=== PATIENT | male | born 1965 | race Caucasian/White ===

== ENCOUNTER 2016-06-18 05:32 | Emergency (ER) | payer BC, OTHER ==
[2016-06-18 06:13] LABS: Basophils # (A) 0.1 k/uL (0-0.2); Basophils % (A) 2 %; CH 31.3; CHCM 36.4; Eosinophils # (A) 0.4 k/uL (0-0.7); Eosinophils % (A) 6 %; HCT 47.4 % (39.0-53.0); HDW 2.84; Luc # (Auto) 0.17; Luc % (Auto) 3; Lymphocytes # (A) 1.4 k/uL (1.0-4.8); Lymphocytes % (A) 23 %; MCHC 35.9 g/dL (31.0-37.0); MCV 86.3 fL (80.0-100.0); Mean Platelet Volume 7.7; Monocytes # (A) 0.6 k/uL (0-1.0); Monocytes % (A) 9 %; Neutrophils # (A) 3.7 k/uL (1.3-7.7); Neutrophils % (A) 58 %; RBC 5.49 m/uL (4.30-5.90); RDW 12.2 % (11.5-15.5); WBC 6.4 k/uL (3.8-10.6); WBC (Perox) 5.85
--- NOTE | 2016-06-18 06:26 | XR ---
EXAM: XR Chest, 2 Views. CLINICAL HISTORY: Reason: Chest Pain TECHNIQUE: Frontal and lateral views of the chest. COMPARISON: No relevant prior studies available. FINDINGS: Lungs: Unremarkable. No consolidation. Pleural spaces: Unremarkable. No pneumothorax. Heart: Unremarkable. No cardiomegaly. Mediastinum: Unremarkable. Bones: Unremarkable. No acute fracture. IMPRESSION: Normal chest.
[2016-06-18 06:32] LABS: ALT 91 U/L (21-72); AST 60 U/L (17-59); Alkaline Phosphatase 48 U/L (38-126); Anion Gap 13 mmol/L; Blood Urea Nitrogen 14 mg/dL (9-20); Calcium 9.1 mg/dL (8.4-10.2); Carbon Dioxide 22 mmol/L (22-30); Chloride 108 mmol/L (98-107); Glucose 100 mg/dL (74-99); Magnesium 2.2 mg/dL (1.6-2.3); Non-African American GFR(MDRD) >60 (>60 ml/min/1.73 sqM); Potassium 4.6 mmol/L (3.5-5.1); Sodium 143 mmol/L (137-145); Total Bilirubin 1.1 mg/dL (0.2-1.3); Total Protein 7.2 g/dL (6.3-8.2)
--- NOTE | 2016-06-18 06:37 | ED ---
Arrhythmia/Palpitations HPI - General Source: patient Mode of arrival: wheelchair Limitations: no limitations - History of Present Illness MD Complaint: palpitations Onset/Timin -: hour(s) Context: awoke with symptoms Associated Symptoms: denies other symptoms <Brian Uribe - Last Filed: 06/18/16 06:38> <Rubén Parkinson - Last Filed: 06/18/16 09:42> - General Chief Complaint: Arrhythmia/Palpitations Stated Complaint: Heart Palpitations Time Seen by Provider: 06/18/16 05:47 - History of Present Illness Initial Comments: This patient is a 51-year-old man who presents to be evaluated for palpitations. The patient states that he woke up a bit after 4 AM and noticed that his heart was pounding in his chest. He denies other symptoms, including no chest pain, dyspnea, diaphoresis, nausea or vomiting. He does state that he believes he has history of sleep apnea though he has not had a formal sleep study. (Brian Uribe) - Related Data Home Medications Medication Instructions Recorded Confirmed Ascorbic Acid/Multivit-Min 1,000 mg PO DAILY 06/18/16 06/18/16 [Emergen-C 1,000 mg Packet] [id number] Systemic Enzyme 1 tab PO AC-TID 06/18/16 06/18/16 Formula Losartan Potassium 100 mg PO DAILY 06/18/16 06/18/16 Multivitamin [Men's Multi-Vitamin] 1 tab PO DAILY 06/18/16 06/18/16 Ubidecarenone [Co Q-10] 200 mg PO DAILY 06/18/16 06/18/16 Allergies Allergy/AdvReac Type Severity Reaction Status Date / Time No Known Allergies Allergy Verified 06/18/16 08:41 Review of Systems ROS Other: All systems not noted in ROS Statement are negative. Constitutional: Denies: fever, chills Respiratory: Denies: cough, dyspnea, wheezes Cardiovascular: Reports: palpitations. Denies: chest pain, orthopnea, edema, syncope Gastrointestinal: Denies: abdominal pain, nausea, vomiting Musculoskeletal: Denies: back pain Skin: Denies: rash Neurological: Denies: headache, weakness, numbness <Brian Uribe - Last Filed: 06/18/16 06:38> ROS Other: All systems not noted in ROS Statement are negative. <Rubén Parkinson - Last Filed: 06/18/16 09:42> ROS Statement: Those systems with pertinent positive or pertinent negative responses have been documented in the HPI. Past Medical History Past Medical History: GERD/Reflux, Hypertension, Sleep Apnea/CPAP/BIPAP Additional Past Medical History / Comment(s): no cpap used, hx kidney stones History of Any Multi-Drug Resistant Organisms: None Reported Past Surgical History: Orthopedic Surgery Additional Past Surgical History / Comment(s): left knee surgery, ruptured left bicep tendon, rt hand surgery, facial surgery-broken jaw, lasik eye surgery Past Anesthesia/Blood Transfusion Reactions: Motion Sickness Past Psychological History: No Psychological Hx Reported Smoking Status: Former smoker Past Alcohol Use History: Rare Additional Past Alcohol Use History / Comment(s): quit smoking 26 yrs ago, smoked for 4 yrs Past Drug Use History: None Reported - Past Family History Mother Family Medical History: No Reported History <Brian Uribe - Last Filed: 06/18/16 06:38> General Exam Limitations: no limitations General appearance: alert, in no apparent distress Head exam: Present: atraumatic, normocephalic Eye exam: Present: normal appearance. Absent: scleral icterus, conjunctival injection Neck exam: Present: normal inspection Respiratory exam: Present: normal lung sounds bilaterally. Absent: respiratory distress, wheezes, rales, rhonchi, stridor, chest wall tenderness Cardiovascular Exam: Present: regular rate, normal rhythm, normal heart sounds. Absent: systolic murmur, diastolic murmur, rubs, gallop GI/Abdominal exam: Present: soft. Absent: distended, tenderness, guarding, rebound, mass Extremities exam: Present: normal inspection, normal capillary refill. Absent: pedal edema, calf tenderness Neurological exam: Present: alert Skin exam: Present: warm, dry, intact, normal color. Absent: rash <JojoBrian - Last Filed: 06/18/16 06:38> General appearance: alert, in no apparent distress Head exam: Present: atraumatic, normocephalic, normal inspection Eye exam: Present: normal appearance, PERRL, EOMI. Absent: scleral icterus, conjunctival injection, periorbital swelling ENT exam: Present: normal exam, mucous membranes moist Neck exam: Present: normal inspection. Absent: tenderness, meningismus, lymphadenopathy Respiratory exam: Present: normal lung sounds bilaterally. Absent: respiratory distress, wheezes, rales, rhonchi, stridor Cardiovascular Exam: Present: regular rate, normal rhythm, normal heart sounds. Absent: systolic murmur, diastolic murmur, rubs, gallop, clicks GI/Abdominal exam: Present: soft, normal bowel sounds. Absent: distended, tenderness, guarding, rebound, rigid Extremities exam: Present: normal inspection, full ROM, normal capillary refill. Absent: tenderness, pedal edema, joint swelling, calf tenderness Back exam: Present: normal inspection Neurological exam: Present: alert, oriented X3, CN II-XII intact Psychiatric exam: Present: normal affect, normal mood Skin exam: Present: warm, dry, intact, normal color. Absent: rash <Rubén Parkinson - Last Filed: 06/18/16 09:42> Course <Brian Uribe - Last Filed: 06/18/16 06:38> <Rubén Parkinson - Last Filed: 06/18/16 09:42> Vital Signs 06/18/16 06/18/16 05:34 07:43 Temperature 97.8 F Pulse Rate 82 67 Respiratory 18 18 Rate Blood Pressure 179/105 168/86 O2 Sat by Pulse 95 97 Oximetry - Reevaluation(s) Reevaluation #1: 06/18/16 08:53 Patient is asymptomatic and repeat evaluation, patient consulted greater than 15 minutes regarding elevated precardiac enzymes CK-MB index. At this time patient is agreeing a repeat troponin he has had stress test within the past 6 months it was normal and denies chest pain. Plan is agreeable (Rubén Parkinson) EKG Findings - EKG Results: EKG: interpreted by ERMD, sinus rhythm (Rate 83 bpm), normal axis, normal QRS, normal ST/T <Brian Uribe - Last Filed: 06/18/16 06:38> Medical Decision Making - Lab Data Result diagrams: 06/18/16 05:50 <Brian Uribe Last Filed: 06/18/16 06:38> - Lab Data Result diagrams: 06/18/16 05:50 06/18/16 05:50 - Radiology Data Radiology results: report reviewed (Chest x-ray negative for acute disease), image reviewed <Rubén Parkinson - Last Filed: 06/18/16 09:42> - Medical Decision Making 48 male here with nonspecific palpitations, at this time patient's symptoms remained improved troponin negative 2 and temperature discharge home to follow up with cardiology (Rubén Parkinson) - Lab Data Lab Results 06/18/16 06/18/16 06/18/16 Range/Units 05:50 05:50 05:50 WBC 6.4 (3.8-10.6) k/uL RBC 5.49 (4.30-5.90) m/uL Hgb 17.0 (13.0-17.5) gm/dL Hct 47.4 (39.0-53.0) % MCV 86.3 (80.0-100.0) fL MCH 31.0 (25.0-35.0) pg MCHC 35.9 (31.0-37.0) g/dL RDW 12.2 (11.5-15.5) % Plt Count 195 (150-450) k/uL Neutrophils % 58 % Lymphocytes % 23 % Monocytes % 9 % Eosinophils % 6 % Basophils % 2 % Neutrophils # 3.7 (1.3-7.7) k/uL Lymphocytes # 1.4 (1.0-4.8) k/uL Monocytes # 0.6 (0-1.0) k/uL Eosinophils # 0.4 (0-0.7) k/uL Basophils # 0.1 (0-0.2) k/uL D-Dimer (<0.60) mg/L FEU Sodium 143 (137-145) mmol/L Potassium 4.6 (3.5-5.1) mmol/L Chloride 108 H (98-107) mmol/L Carbon Dioxide 22 (22-30) mmol/L Anion Gap 13 mmol/L BUN 14 (9-20) mg/dL Creatinine 0.86 (0.66-1.25) mg/dL Est GFR (MDRD) Af Amer >60 (>60 ml/min/1.73 sqM) Est GFR (MDRD) Non-Af >60 (>60 ml/min/1.73 sqM) Glucose 100 H (74-99) mg/dL Calcium 9.1 (8.4-10.2) mg/dL Magnesium 2.2 (1.6-2.3) mg/dL Total Bilirubin 1.1 (0.2-1.3) mg/dL AST 60 H (17-59) U/L ALT 91 H (21-72) U/L Alkaline Phosphatase 48 (38-126) U/L Total Creatine Kinase 148 (55-170) U/L CK-MB (CK-2) 5.9 H* (0.0-2.4) ng/mL CK-MB (CK-2) Rel Index 4.0 Troponin I <0.012 (0.000-0.034) ng/mL NT-Pro-B Natriuret Pep pg/mL Total Protein 7.2 (6.3-8.2) g/dL Albumin 4.2 (3.5-5.0) g/dL 06/18/16 06/18/16 06/18/16 Range/Units 05:50 05:50 08:45 WBC (3.8-10.6) k/uL RBC (4.30-5.90) m/uL Hgb (13.0-17.5) gm/dL Hct (39.0-53.0) % MCV (80.0-100.0) fL MCH (25.0-35.0) pg MCHC (31.0-37.0) g/dL RDW (11.5-15.5) % Plt Count (150-450) k/uL Neutrophils % % Lymphocytes % % Monocytes % % Eosinophils % % Basophils % % Neutrophils # (1.3-7.7) k/uL Lymphocytes # (1.0-4.8) k/uL Monocytes # (0-1.0) k/uL Eosinophils # (0-0.7) k/uL Basophils # (0-0.2) k/uL D-Dimer 0.19 (<0.60) mg/L FEU Sodium (137-145) mmol/L Potassium (3.5-5.1) mmol/L Chloride (98-107) mmol/L Carbon Dioxide (22-30) mmol/L Anion Gap mmol/L BUN (9-20) mg/dL Creatinine (0.66-1.25) mg/dL Est GFR (MDRD) Af Amer (>60 ml/min/1.73 sqM) Est GFR (MDRD) Non-Af (>60 ml/min/1.73 sqM) Glucose (74-99) mg/dL Calcium (8.4-10.2) mg/dL Magnesium (1.6-2.3) mg/dL Total Bilirubin (0.2-1.3) mg/dL AST (17-59) U/L ALT (21-72) U/L Alkaline Phosphatase (38-126) U/L Total Creatine Kinase 122 (55-170) U/L CK-MB (CK-2) 5.3 H* (0.0-2.4) ng/mL CK-MB (CK-2) Rel Index 4.3 Troponin I <0.012 (0.000-0.034) ng/mL NT-Pro-B Natriuret Pep 47 pg/mL Total Protein (6.3-8.2) g/dL Albumin (3.5-5.0) g/dL Disposition <Brian Uribe - Last Filed: 06/18/16 06:38> <Rubén Parkinson - Last Filed: 06/18/16 09:42> Clinical Impression: Palpitations Disposition: HOME SELF-CARE Condition: Good Instructions: Palpitations (ED) Referrals: Jerri Garcia MD [Primary Care Provider] - 1-2 days
[2016-06-18 06:52] LABS: Creatine Kinase 148 U/L (55-170)
[2016-06-18 07:04] LABS: Troponin I <0.012 ng/mL (0.000-0.034)
[2016-06-18 07:15] LABS: Creatine Kinase MB 5.9 ng/mL (0.0-2.4)
[2016-06-18 09:25] LABS: Creatine Kinase 122 U/L (55-170)
[2016-06-18 09:38] LABS: Troponin I <0.012 ng/mL (0.000-0.034)
[2016-06-18 09:39] LABS: Creatine Kinase MB 5.3 ng/mL (0.0-2.4)
[2016-06-18 10:02] VITALS: BP 171/78; PULSE 71; RESP 16; TEMP 98.7
== END 2016-06-18 10:02 | disposition home or self-care (01) ==
LOC: EC 05:32
DX: R00.2 Palpitations (principal); K21.9 Gastro-esophageal reflux disease without esophagitis; I10 Essential (primary) hypertension; Z79.899 Other long term (current) drug therapy; Z87.891 Personal history of nicotine dependence
CPT/HCPCS: 36415; 71020; 80053; 82550; 82553; 83735; 83880; 84484; 85025; 85379; 93005; 99285

== ENCOUNTER → 2017-02-09 | Outpatient (CLI) | payer BC ==
[2017-02-09 07:42] LABS: Basophils # (A) 0.1 k/uL (0-0.2); Basophils % (A) 1 %; CH 31.6; Eosinophils # (A) 0.3 k/uL (0-0.7); Eosinophils % (A) 4 %; HCT 51.7 % (39.0-53.0); HDW 2.76; HGB 17.3 gm/dL (13.0-17.5); Luc # (Auto) 0.19; Luc % (Auto) 3; Lymphocytes # (A) 1.8 k/uL (1.0-4.8); Lymphocytes % (A) 25 %; MCH 30.2 pg (25.0-35.0); MCHC 33.4 g/dL (31.0-37.0); MCV 90.4 fL (80.0-100.0); Mean Platelet Volume 6.8; Monocytes # (A) 0.6 k/uL (0-1.0); Monocytes % (A) 8 %; Neutrophils # (A) 4.4 k/uL (1.3-7.7); Neutrophils % (A) 60 %; RBC 5.72 m/uL (4.30-5.90); RDW 12.4 % (11.5-15.5); WBC 7.3 k/uL (3.8-10.6); WBC (Perox) 6.96
[2017-02-09 09:11] LABS: ALT 74 U/L (21-72); AST 49 U/L (17-59); Alkaline Phosphatase 65 U/L (38-126); Anion Gap 11 mmol/L; Blood Urea Nitrogen 18 mg/dL (9-20); Calcium 9.6 mg/dL (8.4-10.2); Carbon Dioxide 26 mmol/L (22-30); Chloride 104 mmol/L (98-107); Cholesterol 154 mg/dL (<200); Glucose 102 mg/dL (74-99); HDL Cholesterol 39 mg/dL (40-60); Non-African American GFR(MDRD) >60 (>60 ml/min/1.73 sqM); Potassium 4.7 mmol/L (3.5-5.1); Sodium 141 mmol/L (137-145); Total Bilirubin 1.4 mg/dL (0.2-1.3); Total Protein 7.5 g/dL (6.3-8.2)
[2017-02-09 12:45] LABS: Lyme IgG/IgM 0.1 Index; Lyme IgG/IgM Interp NEGATIVE (NEGATIVE)
== END | disposition home or self-care (01) ==
LOC: LABWHC1 06:37
PROVIDERS: ATTEND Internal Medicine
DX: S30.861A Insect bite (nonvenomous) of abdominal wall, initial encounter (principal); I10 Essential (primary) hypertension; Z12.5 Encounter for screening for malignant neoplasm of prostate
CPT/HCPCS: 84439; 80061; 80053; 84443; 85025; 86618; 36415; G0103

== ENCOUNTER 2017-12-15 14:15 | Inpatient (IN) | payer BC, OTHER ==
--- NOTE | 2017-12-15 15:18 | ED ---
General Adult HPI - General Chief complaint: Psychiatric Symptoms Stated complaint: mental health Time Seen by Provider: 12/15/17 14:22 Source: patient, RN notes reviewed, old records reviewed Mode of arrival: ambulatory Limitations: no limitations - History of Present Illness Initial comments: This is a 52-year-old male to the ER for evaluation of psychiatric illness. Patient sent ER today for evaluation regarding positive psychiatric issues. Patient denies any recent travel history or sick contacts. Patient denies any drug or alcohol abuse. Patient does take psychiatric medications. - Related Data Home Medications Medication Instructions Recorded Confirmed Losartan Potassium 100 mg PO DAILY 06/18/16 12/15/17 Aspirin/Acetaminophen/Caffeine 1 - 2 tab PO QID PRN 12/15/17 12/15/17 [Excedrin Migraine Caplet] Citalopram Hydrobromide [CeleXA] 40 mg PO DAILY 12/15/17 12/15/17 Metoprolol Tartrate [Lopressor] 25 mg PO BID 12/15/17 12/15/17 Mirtazapine [Remeron] 15 mg PO HS 12/15/17 12/15/17 Allergies Allergy/AdvReac Type Severity Reaction Status Date / Time No Known Allergies Allergy Verified 12/15/17 15:05 Review of Systems ROS Statement: Those systems with pertinent positive or pertinent negative responses have been documented in the HPI. ROS Other: All systems not noted in ROS Statement are negative. Past Medical History Past Medical History: GERD/Reflux, Hypertension, Sleep Apnea/CPAP/BIPAP Additional Past Medical History / Comment(s): no cpap used, hx kidney stones History of Any Multi-Drug Resistant Organisms: None Reported Past Surgical History: Orthopedic Surgery Additional Past Surgical History / Comment(s): left knee surgery, ruptured left bicep tendon, rt hand surgery, facial surgery-broken jaw, lasik eye surgery Past Anesthesia/Blood Transfusion Reactions: Motion Sickness Past Psychological History: Depression Smoking Status: Former smoker Past Alcohol Use History: Rare Past Drug Use History: None Reported - Past Family History Mother Family Medical History: No Reported History General Exam Limitations: no limitations General appearance: alert, in no apparent distress Head exam: Present: atraumatic, normocephalic, normal inspection Eye exam: Present: normal appearance, PERRL, EOMI. Absent: scleral icterus, conjunctival injection, periorbital swelling ENT exam: Present: normal exam, mucous membranes moist Neck exam: Present: normal inspection. Absent: tenderness, meningismus, lymphadenopathy Respiratory exam: Present: normal lung sounds bilaterally. Absent: respiratory distress, wheezes, rales, rhonchi, stridor Cardiovascular Exam: Present: regular rate, normal rhythm, normal heart sounds. Absent: systolic murmur, diastolic murmur, rubs, gallop, clicks GI/Abdominal exam: Present: soft, normal bowel sounds. Absent: distended, tenderness, guarding, rebound, rigid Extremities exam: Present: normal inspection, full ROM, normal capillary refill. Absent: tenderness, pedal edema, joint swelling, calf tenderness Back exam: Present: normal inspection Neurological exam: Present: alert, oriented X3, CN II-XII intact Psychiatric exam: Present: normal affect, normal mood Skin exam: Present: warm, dry, intact, normal color. Absent: rash Course Vital Signs 12/15/17 12/15/17 12/15/17 14:17 16:44 17:40 Temperature 98.2 F 98.1 F 98.3 F Pulse Rate 82 76 63 Respiratory 20 16 18 Rate Blood Pressure 157/103 173/92 159/83 O2 Sat by Pulse 98 96 96 Oximetry - Reevaluation(s) Reevaluation #1: 12/15/17 15:18 Patient is medically clear for psychiatric evaluation Medical Decision Making - Medical Decision Making 52 male the ER for evaluation, patient is seen evaluated with psychiatry, will admit for psychiatric evaluation and treatment - Lab Data Result diagrams: 12/23/17 08:18 12/16/17 07:36 Lab Results 12/15/17 12/15/17 Range/Units 16:20 16:20 Urine Color Yellow Urine Appearance Clear (Clear) Urine pH 5.0 (5.0-8.0) Ur Specific [place] 1.021 (1.001-1.035) Urine Protein Negative (Negative) Urine Glucose (UA) Negative (Negative) Urine Ketones Negative (Negative) Urine Blood Small H (Negative) Urine Nitrite Negative (Negative) Urine Bilirubin Negative (Negative) Urine Urobilinogen <2.0 (<2.0) mg/dL Ur Leukocyte Esterase Negative (Negative) Urine RBC 2 (0-5) /hpf Urine WBC 1 (0-5) /hpf Calcium Oxalate Crystal Moderate H (None) /hpf Urine Bacteria Rare H (None) /hpf Urine Mucus Rare H (None) /hpf Urine Opiates Screen Not Detected (NotDetected) Ur Oxycodone Screen Not Detected (NotDetected) Urine Methadone Screen Not Detected (NotDetected) Ur Propoxyphene Screen Not Detected (NotDetected) Ur Barbiturates Screen Not Detected (NotDetected) U Tricyclic Antidepress Not Detected (NotDetected) Ur Phencyclidine Scrn Not Detected (NotDetected) Ur Amphetamines Screen Not Detected (NotDetected) U Methamphetamines Scrn Not Detected (NotDetected) U Benzodiazepines Scrn Not Detected (NotDetected) Urine Cocaine Screen Not Detected (NotDetected) U Marijuana (THC) Screen Not Detected (NotDetected) Disposition Clinical Impression: Depression, Suicidal ideation Disposition: TRANSFER TO PSYCH HOSP/UNIT Condition: Fair Is patient prescribed a controlled substance at d/c from ED?: No
[2017-12-15] MEDS ORDERED: METOPROLOL TARTRATE 25 MG TAB PO STA (16:36)
[2017-12-15] MEDS ORDERED: LOSARTAN 50 MG TAB PO STA (16:36)
[2017-12-15 16:38] LABS: Amphetamine Screen,Urine Not Detected (NotDetected); Barbiturate Screen,Urine Not Detected (NotDetected); Benzodiazepines Screen,Urine Not Detected (NotDetected); Cocaine Screen,Urine Not Detected (NotDetected); Methadone Screen, Urine Not Detected (NotDetected); Opiate Screen,Urine Not Detected (NotDetected); Oxycodone Screen, Urine Not Detected (NotDetected); Phencyclidine Screen,Urine Not Detected (NotDetected); Tricyclic Antidepressant,Urine Not Detected (NotDetected); Urn Cannabinoid Scrn Not Detected (NotDetected)
[2017-12-15] MEDS ORDERED: MAGNESIUM HYDROXIDE 2,400 MG/10 ML CUP PO PRN (17:29)
[2017-12-15] MEDS ORDERED: MAG HYDROX/AL HYDROX/SIMETH 30 ML CUP PO PRN (17:29)
[2017-12-15] MEDS ORDERED: ASPIRIN-ACET-CAFF 250-250-65MG 1 EACH TAB PO PRN (17:32)
[2017-12-15 18:21] LABS: Appearance,Urine Clear (Clear); Bacteria,Urine Rare /hpf; Bilirubin,Urine Negative (Negative); Blood,Urine Small (Negative); Calcium Oxalate Crystals,Urine Moderate /hpf; Color,Urine Yellow; Glucose,Urine (UA) Negative (Negative); Ketones,Urine Negative (Negative); Leukocyte Esterase,Urine Negative (Negative); Mucus,Urine Rare /hpf; Nitrite,Urine Negative (Negative); Protein,Urine Negative (Negative); RBC,Urine 2 /hpf (0-5); Specific Gravity,Urine 1.021 (1.001-1.035); Urobilinogen,Urine <2.0 mg/dL (<2.0); WBC,Urine 1 /hpf (0-5)
[2017-12-15] MEDS: METOPROLOL TARTRATE 25 MG TAB PO SCH (20:22)
[2017-12-15] MEDS: MIRTAZAPINE 15 MG TAB PO SCH (20:22)
--- NOTE | 2017-12-15 22:51 | CONS ---
CONSULTATION DATE OF SERVICE: 12/15/2017 REASON FOR CONSULTATION: Advice regarding hypertension and other multiple medical issues, requested by Psychiatry. HISTORY OF PRESENT ILLNESS: This 52-year-old gentleman with a past medical history of GERD, hypertension, sleep apnea, DJD, being followed by Dr. Garcia in the outpatient setting, was admitted for psychiatric evaluation. There is no history of any fever or rigors. No history of headache, loss of consciousness, seizures. PAST MEDICAL HISTORY: 1. GERD. 2. Hypertension. 3. Sleep apnea. No CPAP. 4. History of kidney stones. HOME MEDICATIONS: 1. Remeron 15 mg at bedtime. 2. Lopressor 25 mg b.i.d. 3. Losartan 100 mg p.o. daily. 4. Celexa 40 mg daily. 5. Excedrin 1 to 2 q.i.d. p.r.n. ALLERGIES: NONE. FAMILY HISTORY: No history of heart disease or strokes in the family. SOCIAL HISTORY: Previous history of smoking. Occasional alcohol intake. REVIEW OF SYSTEMS: ENT: No diminished hearing. No diminished vision. CARDIOVASCULAR SYSTEM: No angina, palpitations. RESPIRATORY SYSTEM: No cough, hemoptysis. GI: No nausea, vomiting. : No dysuria or retention. NERVOUS SYSTEM: No numbness, weakness. ALLERGY/IMMUNOLOGY: No asthma, hayfever. MUSCULOSKELETAL: As mentioned earlier. HEMATOLOGY/ONCOLOGY: No history of anemia. ENDOCRINE: No history of diabetes, hypothyroidism. CONSTITUTIONAL: As mentioned earlier. DERMATOLOGY: Negative. RHEUMATOLOGY: Negative. PSYCHIATRY: As mentioned earlier. PHYSICAL EXAMINATION: Patient is alert and oriented x3. Pulse is 63, blood pressure 146/100, respiration 16, temperature 97.8, pulse ox 96% on room air. HEENT: Conjunctivae normal. Oral mucosa moist. NECK: No jugular venous distention. No carotid bruit. No lymph node enlargement. CARDIOVASCULAR SYSTEM: S1, S2 muffled. No S3. No S4. RESPIRATORY SYSTEM: Breath sounds diminished at the bases. No rhonchi. No crackles. ABDOMEN: Soft, obese, non-tender. No mass palpable. LEGS: No edema. No swelling. NERVOUS SYSTEM: Higher functions as mentioned earlier. Cranial nerves 2 through 12 grossly intact. Eye movements full and no nystagmus. No facial deviations. Moves all 4 limbs. No weakness. No sensory abnormalities. Gait is normal. LYMPHATICS: No lymph node palpable in neck, axillae or groin. SKIN: No ulcer, rash, bleeding. JOINTS: No active deforming arthropathy. LABS: UA noted. Other labs are pending. ASSESSMENT: 1. Hypertension. 2. Depression. 3. Gastroesophageal reflux disease. 4. Sleep apnea. 5. History of renal stones. 6. Remote history of nicotine dependence. RECOMMENDATIONS AND DISCUSSION: In this 52-year-old gentleman who presented with multiple medical issues, at this time I recommend to continue current medications, continue symptomatic treatment. I recommend resuming the home medications. The patient is currently on a combination of losartan and metoprolol. I would recommend to continue the medication. Monitor blood pressure closely. Primary labs are not available. If there is an abnormality I would be happy to review. Otherwise, continue the rest of the medications. The patient may be asked to follow up with Dr. Garcia after discharge. Thank you, Dr. Murguia, for letting us participate in the care of this patient. MMODL / IJN: [id number] /
[2017-12-16 08:25] LABS: Basophils # (A) 0.1 k/uL (0-0.2); Basophils % (A) 1 %; Eosinophils # (A) 0.3 k/uL (0-0.7); Eosinophils % (A) 4 %; HCT 50.8 % (39.0-53.0); Lymphocytes # (A) 1.8 k/uL (1.0-4.8); Lymphocytes % (A) 24 %; MCH 30.2 pg (25.0-35.0); MCHC 33.5 g/dL (31.0-37.0); MCV 90.1 fL (80.0-100.0); Mean Platelet Volume 6.8; Monocytes # (A) 0.7 k/uL (0-1.0); Monocytes % (A) 10 %; Neutrophils # (A) 4.3 k/uL (1.3-7.7); Neutrophils % (A) 59 %; Platelet Count 205 k/uL (150-450); RBC 5.63 m/uL (4.30-5.90); RDW 12.6 % (11.5-15.5); WBC 7.3 k/uL (3.8-10.6)
[2017-12-16 08:26] LABS: ALT 122 U/L (21-72); AST 78 U/L (17-59); Alkaline Phosphatase 45 U/L (38-126); Anion Gap 8 mmol/L; Blood Urea Nitrogen 15 mg/dL (9-20); Calcium 9.4 mg/dL (8.4-10.2); Carbon Dioxide 28 mmol/L (22-30); Chloride 106 mmol/L (98-107); Cholesterol 176 mg/dL (<200); Glucose 91 mg/dL (74-99); HDL Cholesterol 30 mg/dL (40-60); LDL Cholesterol,Calculated 115 mg/dL (0-99); Potassium 4.7 mmol/L (3.5-5.1); Sodium 142 mmol/L (137-145); Total Bilirubin 1.1 mg/dL (0.2-1.3); Triglycerides 153 mg/dL (<150)
[2017-12-16] MEDS: LOSARTAN 50 MG TAB PO SCH (08:49)
[2017-12-16] MEDS: METOPROLOL TARTRATE 25 MG TAB PO SCH ×2 (08:49→22:18)
[2017-12-16] MEDS: CITALOPRAM HYDROBROMIDE 20 MG TAB PO SCH (08:50)
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
[2017-12-16 13:09] VITALS: BMI 29.5
[2017-12-16 20:04] LABS: Hemoglobin A1C 4.8 % (4.0-6.0)
[2017-12-16] MEDS ORDERED: DIVALPROEX ER 250 MG TAB.ER.24H PO SCH (21:00)
[2017-12-16] MEDS: MIRTAZAPINE 15 MG TAB PO SCH (22:18)
[2017-12-17] MEDS: METOPROLOL TARTRATE 25 MG TAB PO SCH ×2 (08:55→20:27)
[2017-12-17] MEDS: ACETAMINOPHEN TAB 325 MG TAB PO PRN (08:55)
[2017-12-17] MEDS: CITALOPRAM HYDROBROMIDE 20 MG TAB PO SCH (08:55)
[2017-12-17] MEDS: LOSARTAN 50 MG TAB PO SCH (08:55)
--- NOTE | 2017-12-17 12:16 | P.PN ---
Progress Note - Text Progress Note Date: 12/17/17 Interval History: Patient is a 52-year-old male who was seen today and he reports that he has attempted to attend some of the activities but finds it stressful to do so. Patient states that he has not gone off on anyone since he is been here. Patient states that he did sleep 7 hours last night. Patient states that he is not currently feeling suicidal but did feel so in the past when he had the outburst at home. He reports no side effects from starting Depakote. Mental Status: Appearance/Attitude: Patient is casually dressed, using a walker to ambulate and wearing dark glasses patient was cooperative Behavior: Patient did not display any psychomotor agitation or retardation. Speech/Language: Patient's speech is spontaneous of normal volume and rhythm and he is coherent Thought Process: Patient is goal-directed there is no evidence of loose association or flight of ideas Thought Content: Patient denies any auditory or visual hallucinations and no delusions or paranoid ideation or elicited. Patient states that he is trying to interact with some people here but finds it difficult. He states that he has not felt like going off on anyone since he is been here. Patient has tried to attend some groups. He states that he mostly spends his time in his room. Patient states he slept well last night and his appetite is good. Suicidal/Homicidal Ideation: Patient denies any current suicidal or homicidal ideation Sensorium/Cognition: Patient is alert, oriented to person, place, and time Mood/Affect: patient's mood remains depressed and his affect slightly blunted Insight/Judgment: patient's insight and judgment are fair Assessment: Patient and I discussed his neuropsychological testing which his brought into the hospital. Patient and I also discussed his concerns regarding his IQ assessment by the psychologist. Patient has attempted to attend some groups and activities, states that he finds it difficult to interact with the other people on the unit. Patient reports no side effects from starting Depakote last evening. Plan: Will increase patient's Depakote to 500 mg extended release at bedtime and decrease his Remeron to 7-1/2 mg at bedtime and continue Celexa 40 mg in the morning. Will continue to titrate the Depakote to a therapeutic dose and eventually discontinue the Remeron. Will contact case management regarding placement in a rehab program. Patient continues to require hospitalization to further stabilize his mood.
[2017-12-17] MEDS: MIRTAZAPINE 15 MG TAB PO SCH (20:27)
[2017-12-17] MEDS: DIVALPROEX ER 500 MG TAB.ER.24H PO SCH (20:27)
[2017-12-18] MEDS: LOSARTAN 50 MG TAB PO SCH (08:52)
[2017-12-18] MEDS: CITALOPRAM HYDROBROMIDE 20 MG TAB PO SCH (08:52)
[2017-12-18] MEDS: METOPROLOL TARTRATE 25 MG TAB PO SCH ×2 (08:52→20:15)
--- NOTE | 2017-12-18 11:20 | P.PN ---
Progress Note - Text Progress Note Date: 12/18/17 Interval History: Patient is a 52-year-old male who was seen today he reports that he was awakened last night in the middle the night and difficulty falling back to sleep he says he got a little upset and angry but did not throw things or start yelling. He states that he is not having any side effects from the medication and attended some groups yesterday but states that he was concerned that he recognized one of the other patients in the hospital and states he'll attempt to attend some groups later today. Patient reports that he has not been speaking with his he has been speaking with his parents who he states are extremely supportive. Mental Status: Appearance/Attitude: Patient is casually dressed using a walker to ambulate and wearing dark glasses, he is cooperative. Behavior: Patient does not exhibit any psychomotor agitation or retardation. Speech/Language: Speech is spontaneous of normal volume and rhythm and he is coherent Thought Process: Patient is goal-directed there is no evidence of loose association or flight of ideas Thought Content: Patient denies any auditory or visual hallucinations and no delusions or paranoid ideation were elicited. Patient states that he was awakened abruptly last night and becomes angry but states he didn't start yelling or throw things. He states that his sleep was somewhat disrupted last night. Patient states that he has attended groups on occasion yesterday and states that he did not get irritated or angry during that time. Patient's appetite remains good. Patient states he has had no conversations with his since his admission. Suicidal/Homicidal Ideation: Patient denies any current suicidal or homicidal ideation Sensorium/Cognition: Patient is alert and oriented to person, place, and time Mood/Affect: Patient's mood remains depressed and his affect appropriate to his mood Insight/Judgment: Patient's insight and judgment are fair Assessment: Patient and I discussed continuing with the Depakote, Celexa and Remeron at their current doses for another day. Patient reports that he was awakened last night and became upset but did not yell and did not throw anything. He is avoided contacting his while he is been here for fear that they will get into another argument. He has a contact with his parents who he describes as extremely supportive. Patient reports no side effects from the medication. He attended some groups and activities yesterday but states he was avoiding them today because he recognized one of the other patients. Plan: Patient will continue on Depakote 500 mg extended release, Celexa 40 mg and Remeron 7-1/2 mg at bedtime, will continue to increase slowly the Depakote and eventually discontinue the Remeron. Patient continues to require hospitalization to target his episodes of irritability and anger.
[2017-12-18] MEDS: ACETAMINOPHEN TAB 325 MG TAB PO PRN (17:09)
[2017-12-18] MEDS: DIVALPROEX ER 500 MG TAB.ER.24H PO SCH (20:15)
[2017-12-18] MEDS: MIRTAZAPINE 15 MG TAB PO SCH (20:15)
[2017-12-19] MEDS: METOPROLOL TARTRATE 25 MG TAB PO SCH ×2 (08:41→20:26)
[2017-12-19] MEDS: CITALOPRAM HYDROBROMIDE 20 MG TAB PO SCH (08:41)
[2017-12-19] MEDS: LOSARTAN 50 MG TAB PO SCH (08:42)
--- NOTE | 2017-12-19 12:33 | P.PN ---
Progress Note - Text Progress Note Date: 12/19/17 Interval History: Patient is a 52-year-old male who was seen today and he reports that he is been emptying to attend groups but doesn't get fatigue after some of them. Patient states that he spoke with his last night and they had a good conversation. He is not currently feeling suicidal. 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 Patient reports no side effects from the medication and states that he slept fairly well last night. Patient reports his appetite is good. Mental Status: Appearance/Attitude: Patient is casually dressed using a walker to ambulate, was wearing dark glasses and was cooperative. Behavior: Patient does not display any psychomotor agitation or retardation. Speech/Language: Patient's speech was spontaneous of normal volume and rhythm and he is coherent Thought Process: Patient was goal-directed there is no evidence of loose association or flight of ideas Thought Content: Patient denies any auditory or visual hallucinations and no delusions or paranoid ideation were elicited. Patient and I discussed the deficits that he has had since the closed head injury, his frustration and coping with them and trying to deny that they existed. Patient and I also discussed his interactions with his children when they perform chores around the house and they worked her way he would've done. Patient reports that his sleep is restful his appetite is good Suicidal/Homicidal Ideation: Patient denied any current suicidal or homicidal ideation Sensorium/Cognition: Patient is alert and oriented to person, place, and time Mood/Affect: Patient's mood remains slightly depressed and his affect slightly blunted, he states that he has not been as irritable Insight/Judgment: Patient's insight and judgment are fair Assessment: Patient I'll long discussion regarding the deficits from the closed head injury, his denial that they existed and trying to push through the mental fatigue he was having. We also discussed his response to his children performing chores around the house that he would do and being critical of how they did them. Patient states that he slept last night with documented he slept 5 hours. Patient states he's been attending groups but needs to rest after some of them because he becomes too fatigued mentally. Patient states a conversation with his went fairly well last night. He reports he felt irritable on the unit on occasion but has not had any outbursts, no throwing things. Plan: Will increase patient's Depakote to 750 mg of extended release at bedtime , continue Celexa 40 mg daily and for 1 more night continue the Remeron 7.5 mg at bedtime. Patient continues to require hospitalization to further stabilize. Awaiting the hepatitis panel that was ordered
[2017-12-19] MEDS: MIRTAZAPINE 15 MG TAB PO SCH (20:25)
[2017-12-19] MEDS: LORazepam 1 MG TAB PO PRN (20:26)
[2017-12-19] MEDS: DIVALPROEX ER 500 MG TAB.ER.24H PO SCH (20:26)
[2017-12-20] MEDS: LOSARTAN 50 MG TAB PO SCH (10:01)
[2017-12-20] MEDS: CITALOPRAM HYDROBROMIDE 20 MG TAB PO SCH (10:01)
[2017-12-20] MEDS: METOPROLOL TARTRATE 25 MG TAB PO SCH ×2 (10:01→20:50)
--- NOTE | 2017-12-20 12:27 | P.PN ---
Progress Note - Text Progress Note Date: 12/20/17 Interval History: Patient is a 52-year-old male who was seen today and he reports that he slept fairly well last night and has been feeling less irritable and has been attending as many groups and activities as he can. Patient states that he still anxious about the future. Patient is not reporting any suicidal thoughts and is not feeling depressed. He states that he has found the groups and activities beneficial. Patient states that he rests when he feels mentally fatigued and this has been beneficial as well. Mental Status: Appearance/Attitude: Patient is casually dressed, using a walker to ambulate and is wearing dark glasses and is cooperative Behavior: Patient does not exhibit any psychomotor agitation or retardation Speech/Language: Patient's speech is spontaneous of normal volume and rhythm and he is coherent Thought Process: Patient is goal-directed there is no evidence of loose association or flight of ideas Thought Content: Patient denies any auditory or visual hallucinations and no delusions or paranoid ideation or elicited. Patient states he's been attending groups and activities, has not had any episodes where he feels irritable or has lost his temper. Patient states that he is anxious about what the future holds , he continued to discuss the coping strategies we discussed yesterday. Patient states that he slept fairly well last night and his appetite is been good Suicidal/Homicidal Ideation: Patient denies any current suicidal or homicidal ideation Sensorium/Cognition: A she is alert and oriented to person, place, and time Mood/Affect: Patient's mood is pleasant and his affect is appropriate Insight/Judgment: Patient's insight and judgment are fair Assessment: Patient has been attending groups and activities as much as he can tolerate before he reports feeling mentally fatigued. Patient states that he's been talking in the group therapy and has found this beneficial. He reports some anxiety about what the future holds but states he has not been feeling as irritable and has not lost his temper while he is on the unit. Patient states he is not feeling depressed and has no suicidal thoughts. Patient states that he has considered the coping strategies we had discussed yesterday and have been discussed with him by his speech therapist any states that he needs to practice them. Patient reports no side effects from the medication. Plan: We will discontinue the patient's Remeron, continue Celexa 40 mg and increase the Depakote to 750 mg at bedtime extended release. We will evaluate the patient off of the Remeron, and should he continued to feel calm without episodes of anger and irritability on the unit will consider discharge later this week. It was discussed in team treatment meeting to contact his foster care case manager from the [employer] case to decide if a referral is still being made for inpatient rehab services for this gentleman.
[2017-12-20] MEDS: DIVALPROEX ER 250 MG TAB.ER.24H PO SCH (20:50)
[2017-12-21] MEDS: LOSARTAN 50 MG TAB PO SCH (09:08)
[2017-12-21] MEDS: CITALOPRAM HYDROBROMIDE 20 MG TAB PO SCH (09:09)
[2017-12-21] MEDS: METOPROLOL TARTRATE 25 MG TAB PO SCH ×2 (09:09→21:07)
--- NOTE | 2017-12-21 13:53 | P.PN ---
Progress Note - Text Progress Note Date: 12/21/17 Interval History: Patient is a 52-year-old male who was seen today and he reports he notices he is much less irritable, he states that he spoke with his this morning the conversation went well. He has been attending some groups or activities but states that he can't attend all of them in a row because of the mental fatigue. Patient states that he has not gotten angry or upset here and states that he is feeling less depressed and no current suicidal ideation. Patient states that he is trying to accept the limitations that he has both from a physical standpoint as well as mental. Mental Status: Appearance/Attitude: Patient is casually dressed, uses a walker to ambulate, was wearing dark glasses and is cooperative Behavior: Patient does not display any psychomotor agitation or retardation Speech/Language: Patient's speech is spontaneous of normal volume and rhythm and he is coherent Thought Process: Patient is goal-directed there is no evidence of loose association or flight of ideas Thought Content: Patient denies any auditory or visual hallucinations and no delusions or paranoid ideation or elicited. Patient states that he hasn't been feeling irritable or angry on the unit and feels that that has improved. Patient states that he attempts to attend activities in groups but gets mentally fatigued easily. Patient states that he slept about 7 hours last night and his appetite is been good. Suicidal/Homicidal Ideation: Patient denies any current suicidal or homicidal ideation Sensorium/Cognition: Patient is alert and oriented to person, place, and time Mood/Affect: Patient's mood is stable and his affect is appropriate Insight/Judgment: Patient's insight and judgment are fair Assessment: Patient discussed again the difficulty in accepting the limitations that have been placed on him both physically as well as mentally after his accident. He states he gets frustrated because he is not allowed to drive, do any physical exercise of any type as well as the limitations with mental activities as he becomes fatigued mentally easily. Patient states he is trying to accept these limitations and states that he is trying to not get as frustrated and angry with them. Patient states that he is feeling less irritable, has had no outbursts of anger while on the unit and states the conversations with his have gone well and he is hoping to have her visit tomorrow. Patient states that his sleep has been restful and he is no longer feeling as depressed. Plan: Patient will continue on Depakote 750 mg extended release at bedtime and Celexa 40 mg in the morning and will order a Depakote level morning, patient and I discussed discharge at the end of the week.
[2017-12-21] MEDS: DIVALPROEX ER 250 MG TAB.ER.24H PO SCH (21:07)
[2017-12-22] MEDS: CITALOPRAM HYDROBROMIDE 20 MG TAB PO SCH (08:23)
[2017-12-22] MEDS: METOPROLOL TARTRATE 25 MG TAB PO SCH ×2 (08:23→20:11)
[2017-12-22] MEDS: LOSARTAN 50 MG TAB PO SCH (08:23)
--- NOTE | 2017-12-22 13:46 | P.PN ---
Progress Note - Text Progress Note Date: 12/22/17 Interval History: Patient is a 52-year-old male who was seen today and he reports that he continues to feel calm and not irritable. Patient states he surprised that he has not responded to any incidents that occurred on the unit. He states that he is to visit with his anna which will be the first time that they've seen each other since his admission, he states that there interactions on the phone have gone well. Patient states no side effects from the medication and states that he slept well. Mental Status: Appearance/Attitude: Patient is casually dressed, wearing dark glasses and using a walker to ambulate, he is cooperative. Behavior: Patient does not exhibit any psychomotor agitation or retardation. Speech/Language: Patient's speech is spontaneous of normal volume and rhythm and he is coherent Thought Process: Patient is goal-directed there is no evidence of loose association or flight of ideas Thought Content: Patient denies any auditory or visual hallucinations and no delusions or paranoid ideation or elicited. Patient states that he has not been feeling irritable or angry on the unit and states he has not responded to incidents on the unit and he knows that this would've agitated him prior to beginning Depakote. Patient states that his is to visit anna. Patient states that he is sleeping and eating well. Suicidal/Homicidal Ideation: Patient denies any current suicidal or homicidal ideation. Sensorium/Cognition: Patient is alert and oriented to person, place, and time Mood/Affect: Patient's mood is stable and his affect is appropriate. Insight/Judgment: Patient's insight and judgment are fair Assessment: Patient has been attending some groups or activities based on how fatigued she is feeling mentally. Patient states that he is not responding to incidents on the unit and he states he knows that this would've agitated or made him angry in the past. Patient states that he is meeting with his are for the first time at their conversations on the phone have gone well. Patient states that he is eating and sleeping well. Reports no side effects from the medication. Plan: Patient will continue on Depakote 750 mg extended release at bedtime and Celexa 40 mg in the morning. [facility] regarding what further rehabilitation services they are recommending, patient and I discussed discharge later this week. A Depakote level, CBC and hepatic panel will be ordered for tomorrow morning, a hepatitis C antibody test will also be performed as the patient has elevated liver enzymes for 2 years history of a blood transfusion. Patient states that he is also been vaccinated for hepatitis B. I discussed the above with the patient and he was agreeable.
[2017-12-22] MEDS: DIVALPROEX ER 250 MG TAB.ER.24H PO SCH (20:10)
[2017-12-22] MEDS: LORazepam 1 MG TAB PO PRN (20:13)
[2017-12-23] MEDS: LOSARTAN 50 MG TAB PO SCH (08:41)
[2017-12-23] MEDS: CITALOPRAM HYDROBROMIDE 20 MG TAB PO SCH (08:41)
[2017-12-23] MEDS: METOPROLOL TARTRATE 25 MG TAB PO SCH ×2 (08:41→20:09)
[2017-12-23 08:56] LABS: Albumin 4.5 g/dL (3.5-5.0); Bilirubin, Delta 0.2 mg/dL (0.0-0.2); Bilirubin,Unconjugated 0.6 mg/dL (0.0-1.1); Total Bilirubin 0.8 mg/dL (0.2-1.3); Total Protein 7.8 g/dL (6.3-8.2)
[2017-12-23 08:59] LABS: HCT 52.5 % (39.0-53.0); HGB 17.7 gm/dL (13.0-17.5); MCH 29.9 pg (25.0-35.0); MCHC 33.6 g/dL (31.0-37.0); Mean Platelet Volume 7.4; Platelet Count 213 k/uL (150-450); RDW 12.1 % (11.5-15.5); WBC 8.2 k/uL (3.8-10.6)
[2017-12-23 09:02] LABS: Valproic Acid (Depakene) 37.1 ug/mL
--- NOTE | 2017-12-23 12:20 | P.PN ---
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 Patient states he'll also be able to keep his healthcare insurance for himself and his family and he states that this is been of great relief to him. Patient and I discussed follow-up rehabilitation services, packets of been sent to another residential programs. Patient reported that his irritability has been much better, he has not felt irritable or angry on the unit and states that he slept well and feels rested. Patient states that he continues to attend those groups unless he is having a headache or feeling extremely mentally fatigued. He stated he was trying to not use his dark glasses today. Mental Status: Appearance/Attitude: Patient is casually dressed, using a walker to ambulate, not wearing dark glasses today makes good eye contact and was cooperative. Behavior: Patient does not exhibit any psychomotor agitation or retardation. Speech/Language: Patient's speech is spontaneous of normal volume and rhythm and he is coherent. Thought Process: Patient is goal-directed there is no evidence of loose association or flight of ideas Thought Content: Patient denies any auditory or visual hallucinations and no delusions or paranoid ideation or elicited. Patient states that his anger and irritability are much less than they were prior to his admission. He states that he is feeling much more relieved now that he has gotten approved for Social Security disability as well as will be able to collect his full pension and have healthcare. Patient states that he is sleeping well and feels rested in the morning. Patient states that his visit with his went well last night. Suicidal/Homicidal Ideation: Patient denies any current suicidal or homicidal ideation Sensorium/Cognition: Patient is alert and oriented to person, place, and time Mood/Affect: Patient's mood is pleasant and his affect is appropriate Insight/Judgment: Patient's insight and judgment are intact Assessment: Patient states that the visit went well with his , he was relieved to find that he was approved for Social Security disability and will be able to collect his full pension and maintain his healthcare benefits. He states that this is been a great relief to him as he was concerned about finances as well as healthcare. Patient states that he continues to have vision therapy here in town but continues to look for residential rehab facilities, packets of been sent. I discussed with him that should this not work out he needs to consider continuing with speech therapy somewhere. Patient has been attending groups and activities as he can tolerate and has tried to not use his dark glasses as much. He reports no side effects from the medication. Patient's Depakote level was 37.1, his liver enzymes have improved his ALT is decreased and his AST is now within normal limits is hepatitis C antibody results are still pending. Plan: Patient continues on Celexa 40 mg daily and Depakote 7 or 50 mg extended release at bedtime. Patient and I discussed discharge tomorrow, he was given referrals to to private psychiatrist in [place] should he wish to follow-up there otherwise I encouraged the patient to continue with [facility] social services counselor. Patient has had packets sent out to residential rehab programs but should these not work out for him I encouraged him to continue with speech therapy as an outpatient. Patient and I discussed discharge for tomorrow.
[2017-12-23] MEDS: DIVALPROEX ER 250 MG TAB.ER.24H PO SCH (20:09)
[2017-12-23] MEDS: LORazepam 1 MG TAB PO PRN (21:11)
[2017-12-24 06:41] VITALS: TEMP 97.9
[2017-12-24] MEDS: CITALOPRAM HYDROBROMIDE 20 MG TAB PO SCH (08:38)
[2017-12-24] MEDS: METOPROLOL TARTRATE 25 MG TAB PO SCH (08:38)
[2017-12-24] MEDS: LOSARTAN 50 MG TAB PO SCH (08:38)
[2017-12-24 08:40] VITALS: BP 143/88; PULSE 78; RESP 18
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
== END 2017-12-24 12:16 | disposition home or self-care (01) | DRG 949 ==
LOC: EC 14:15 → 3MHU 17:23
PROVIDERS: ADMIT Psychiatry & Neurology Psychiatry; ATTEND Psychiatry & Neurology Psychiatry
DX: S06.309D Unspecified focal traumatic brain injury with loss of consciousness of unspecified duration, subsequent encounter (principal); R45.851 Suicidal ideations; F32.9 Major depressive disorder, single episode, unspecified; F91.8 Other conduct disorders; R40.2362 Coma scale, best motor response, obeys commands, at arrival to emergency department; R40.2142 Coma scale, eyes open, spontaneous, at arrival to emergency department; R40.2252 Coma scale, best verbal response, oriented, at arrival to emergency department; K21.9 Gastro-esophageal reflux disease without esophagitis; H54.7 Unspecified visual loss; F41.9 Anxiety disorder, unspecified; G43.909 Migraine, unspecified, not intractable, without status migrainosus; I10 Essential (primary) hypertension; G47.30 Sleep apnea, unspecified; F10.11 Alcohol abuse, in remission; Z79.82 Long term (current) use of aspirin; Z79.899 Other long term (current) drug therapy; Z87.820 Personal history of traumatic brain injury; Z87.442 Personal history of urinary calculi; Z87.891 Personal history of nicotine dependence
CPT/HCPCS: 80053; 80061; 80076; 80164; 80306; 81001; 82075; 83036; 84443; 85025; 85027; 86803; 99285

== ENCOUNTER → 2019-01-05 | Outpatient (CLI) | payer BC ==
--- NOTE | 2019-01-05 20:38 | CONS ---
CONSULTATION DATE OF SERVICE: 01/05/2019 53-year-old gentleman has been evaluated in [facility] for obstructive sleep apnea- hypopnea syndrome. HISTORY OF PRESENT ILLNESS/SLEEP WAKE EVALUATION: Recently patient had sleep study in our institution, which showed severe obstructive sleep apnea with apnea-hypopnea index and oxygen desaturation to 76%. The patient was started on treatment with CPAP and today is his first visit to a physician after he was started to use the CPAP equipment. I checked CPAP unit. Usage is 30/30 nights and 25/30 nights more than 4 hours with average usage 5.6 hours per night. CPAP pressure is 10 cm of water. Leak is 17 L/minutes which is acceptable. Apnea-hypopnea index is 1.5 which is normal range. Patient usual sleep schedule from 10 to 10:30 p.m. to 6 or 6:30 am. Without machine, he snores and has multiple awakenings from sleep after he was started on treatment with CPAP, his sleeps improves. He sleeps normally now, maybe wakes up once with nocturia. [place] Sleepiness Scale is 3, which is normal. No history of hypnagogic hallucinations, sleep paralysis or cataplexy. PAST MEDICAL HISTORY: Positive for traumatic brain injury in 2017, anxiety, hypertension, acid reflux. PAST SURGICAL HISTORY: Left biceps surgery, right hand surgery, broken low jaw surgery, surgery for nasal septum deviation. MEDICATIONS: Depakote, losartan, metoprolol, Nexium. SOCIAL HISTORY: Positive history of smoking for about 10 years. Quit smoking about 30 years ago. Alcohol consumption: Rarely. FAMILY HISTORY: Hypertension, fibromyalgia, headaches, sleep apnea, restless legs. REVIEW OF SYSTEMS: Back pain, hip pain. PHYSICAL EXAM: gentleman, without distress BP 140/87, HR 66, RR 16, height 5 feet 11 inches, weight 228, temperature 98.0, oxygen saturation at room air 98%. Oropharynx extremely low position of soft palate. Mallampati 4, restriction of nasal breathing; possible nasal septal deviation. Wide neck 17-1/4 inches in circumference. Neck Supple, no JVD. Thyroid is not palpable. LUNGS Clear to percussion and to auscultation. Good air exchange. No wheezing or rhonchi. HEART S1, S2 regular. No murmurs, gallops, or rubs. ABDOMEN: Slightly obese. Soft and nontender. Bowel sounds are present. No organomegaly appreciated. EXTREMITIES No clubbing or cyanosis. CHILD PSYCHOLOGIST Awake, alert, and oriented X3. Cranial nerves 2 to 7 intact. There is no fasciculation or atrophy. noted. No focal deficits observed. IMPRESSION: 1. Severe obstructive sleep apnea-hypopnea syndrome; apnea-hypopnea index 54 with oxygen desaturation to 76%. Results of sleep study in different institution, extremely low soft palate, wide neck. The patient demonstrated great compliance of treatment with CPAP, benefitting from treatment. Normalization of breathing on treatment with CPAP. 2. History of traumatic brain injury in January of 2017. 3. History of anxiety. 4. Asthma. 5. Hypertension. 6. Acid reflux. 7. Status post left biceps surgery. 8. Status post right hand surgery. 9. Status post broken low jaw surgery. 10.Nasal septum deviation status post surgical treatment. 11.Status post nose fracture many years ago. PLAN: 1. Patient will continue to use CPAP equipment every night for the whole night. 2. Losing weight. 3. Sleep hygiene with regular time in bed for 7.5 hours. 4. No driving if feeling sleepiness. 5. I will maintain all necessary prescriptions for CPAP supplies including mask, tube, filters. Thank you very much for allowing me to participate in management of your patient. Sincerely, Tu Peres MD, PhD, FAASM Diplomat of [place] [employer] [place] [employer] Product Manager of [facility] Abie MMODL / SAEN: [id number] /
== END | disposition home or self-care (01) ==
LOC: SLEEP 14:55
PROVIDERS: ATTEND Internal Medicine
DX: G47.33 Obstructive sleep apnea (adult) (pediatric) (principal); I10 Essential (primary) hypertension; J45.909 Unspecified asthma, uncomplicated; K21.9 Gastro-esophageal reflux disease without esophagitis; Z87.820 Personal history of traumatic brain injury; Z86.59 Personal history of other mental and behavioral disorders; Z87.81 Personal history of (healed) traumatic fracture; Z99.89 Dependence on other enabling machines and devices; Z98.890 Other specified postprocedural states; Z79.899 Other long term (current) drug therapy
CPT/HCPCS: 99211

== ENCOUNTER 2019-04-13 09:45 | Inpatient (IN) | payer BC ==
[2019-04-13 10:23] LABS: Appearance,Urine Clear (Clear); Bilirubin,Urine Negative (Negative); Blood,Urine Small (Negative); Color,Urine Yellow; Glucose,Urine (UA) Negative (Negative); Ketones,Urine Negative (Negative); Leukocyte Esterase,Urine Negative (Negative); Mucus,Urine Rare /hpf; Nitrite,Urine Negative (Negative); Protein,Urine Negative (Negative); RBC,Urine 2 /hpf (0-5); Specific Gravity,Urine 1.021 (1.001-1.035); Urobilinogen,Urine <2.0 mg/dL (<2.0); WBC,Urine 2 /hpf (0-5)
[2019-04-13 10:34] LABS: Amphetamine Screen,Urine Not Detected (NotDetected); Barbiturate Screen,Urine Not Detected (NotDetected); Benzodiazepines Screen,Urine Not Detected (NotDetected); Cocaine Screen,Urine Not Detected (NotDetected); Methadone Screen, Urine Not Detected (NotDetected); Opiate Screen,Urine Not Detected (NotDetected); Oxycodone Screen, Urine Not Detected (NotDetected); Phencyclidine Screen,Urine Not Detected (NotDetected); Tricyclic Antidepressant,Urine Not Detected (NotDetected); Urn Cannabinoid Scrn Detected (NotDetected)
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
[2019-04-13] MEDS ORDERED: MAG HYDROX/AL HYDROX/SIMETH 30 ML CUP PO PRN (15:54)
[2019-04-13] MEDS ORDERED: MAGNESIUM HYDROXIDE 2,400 MG/10 ML CUP PO PRN (15:54)
[2019-04-13] MEDS ORDERED: OLANZapine 10 MG VIAL IM SCH (16:00)
[2019-04-13] MEDS: LOSARTAN 50 MG TAB PO SCH (16:12)
[2019-04-13] MEDS ORDERED: OLANZapine 10 MG VIAL IM PRN (20:19)
[2019-04-13] MEDS: DIVALPROEX ER 500 MG TAB.ER.24H PO SCH (20:48)
[2019-04-13] MEDS: METOPROLOL TARTRATE 25 MG TAB PO SCH (20:48)
[2019-04-14] MEDS: PANTOPRAZOLE 40 MG TABLET PO SCH (10:09)
[2019-04-14] MEDS: METOPROLOL TARTRATE 25 MG TAB PO SCH ×2 (10:09→22:34)
[2019-04-14] MEDS: DIVALPROEX ER 250 MG TAB.ER.24H PO SCH (10:09)
[2019-04-14] MEDS: LOSARTAN 50 MG TAB PO SCH (10:09)
[2019-04-14] MEDS: VENLAFAXINE HCL ER 37.5 MG CAP PO SCH (10:10)
[2019-04-14 11:18] LABS: Basophils # (A) 0.1 k/uL (0-0.2); Basophils % (A) 1 %; Eosinophils # (A) 0.3 k/uL (0-0.7); Eosinophils % (A) 4 %; HCT 50.1 % (39.0-53.0); HGB 17.2 gm/dL (13.0-17.5); Lymphocytes # (A) 1.5 k/uL (1.0-4.8); Lymphocytes % (A) 19 %; MCH 30.6 pg (25.0-35.0); MCHC 34.4 g/dL (31.0-37.0); MCV 88.9 fL (80.0-100.0); Mean Platelet Volume 7.9; Monocytes # (A) 0.6 k/uL (0-1.0); Monocytes % (A) 8 %; Neutrophils # (A) 5.3 k/uL (1.3-7.7); Neutrophils % (A) 67 %; Platelet Count 257 k/uL (150-450); RBC 5.64 m/uL (4.30-5.90); RDW 12.6 % (11.5-15.5); WBC 7.9 k/uL (3.8-10.6)
[2019-04-14 11:48] LABS: ALT 72 U/L (4-49); AST 53 U/L (17-59); African American GFR (CKD) >90 (>60 ml/min/1.73 sqM); Albumin 4.7 g/dL (3.5-5.0); Alkaline Phosphatase 49 U/L (38-126); Anion Gap 10 mmol/L; Bilirubin, Delta 0.4 mg/dL (0.0-0.2); Bilirubin,Unconjugated 0.5 mg/dL (0.0-1.1); Blood Urea Nitrogen 22 mg/dL (9-20); Carbon Dioxide 29 mmol/L (22-30); Chloride 103 mmol/L (98-107); Cholesterol 159 mg/dL (<200); Glucose 106 mg/dL (74-99); HDL Cholesterol 30 mg/dL (40-60); LDL Cholesterol,Calculated 92 mg/dL (0-99); Non-African American GFR(CKD) 79 (>60 ml/min/1.73 sqM); Potassium 5.7 mmol/L (3.5-5.1); Sodium 142 mmol/L (137-145); Total Bilirubin 0.9 mg/dL (0.2-1.3); Triglycerides 183 mg/dL (<150)
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
[2019-04-14] MEDS: ACETAMINOPHEN TAB 325 MG TAB PO PRN (14:26)
[2019-04-14] MEDS: DIVALPROEX ER 500 MG TAB.ER.24H PO SCH (22:35)
[2019-04-15] MEDS: PANTOPRAZOLE 40 MG TABLET PO SCH (09:06)
[2019-04-15] MEDS: VENLAFAXINE HCL ER 37.5 MG CAP PO SCH (09:06)
[2019-04-15] MEDS: METOPROLOL TARTRATE 25 MG TAB PO SCH ×2 (09:06→21:59)
[2019-04-15] MEDS: LOSARTAN 50 MG TAB PO SCH (09:06)
[2019-04-15] MEDS: DIVALPROEX ER 250 MG TAB.ER.24H PO SCH (09:06)
--- NOTE | 2019-04-15 16:04 | P.PN ---
Progress Note - Text Progress Note Date: 04/15/19 interval history: Patient is seen in cross coverage today. He talks about circumstances precipitating his admission. He does relate that he made a comment about hanging himself but states it is just a figure speech. He is feeling better mood-wilson today. He does talk about the importance of being able to use his CPAP machine because he has severe COPD. He has been started on Effexor XR. He has not verbalize any adverse psychotropic medication side effects currently. Mental status exam: He is alert and cooperative with the interview. His speech is fluent, not rapid or pressured. His thought processes are organized. His mood seems improved today. He denies any thoughts of harm to self or others. No evidence of psychosis or agitation. Plan: Patient will be maintained on current psychotropic medication regimen. Continue to monitor regarding any suicidal ideations. We'll continue to monitor his ongoing response to treatment for any medication side effects. We will look at him being able to utilize his CPAP machine.
[2019-04-15] MEDS: DIVALPROEX ER 500 MG TAB.ER.24H PO SCH (21:59)
[2019-04-16 07:01] VITALS: RESP 16
[2019-04-16 07:49] VITALS: BMI 31.1
[2019-04-16] MEDS: DIVALPROEX ER 250 MG TAB.ER.24H PO SCH (09:22)
[2019-04-16] MEDS: PANTOPRAZOLE 40 MG TABLET PO SCH (09:22)
[2019-04-16] MEDS: LOSARTAN 50 MG TAB PO SCH (09:23)
[2019-04-16] MEDS: VENLAFAXINE HCL ER 37.5 MG CAP PO SCH (09:23)
[2019-04-16] MEDS: METOPROLOL TARTRATE 25 MG TAB PO SCH ×2 (09:23→20:17)
[2019-04-16 09:31] LABS: Calcium 9.9 mg/dL (8.4-10.2); Potassium 4.9 mmol/L (3.5-5.1)
--- NOTE | 2019-04-16 20:16 | P.PN ---
Progress Note - Text Progress Note Date: 04/16/19 interval history: Patient is seen in [facility] again today. He had a family visit with his parents during visiting hours which went well. He describes them as supportive. He talks about looking for discharge planning. We discussed him looking at setting up a family support meeting. Mood wilson seems to be improved today and he relays that over the past couple days he has not had any him anger/agitation. Mental status exam: He is alert and cooperative with the interview. His speech is fluent, not rapid or pressured. Thought processes are organized. His mood seems to be overall improved. He does not verbalize any thoughts of harm to self or others. He does not show any agitation. His no evidence of any active psychosis. Plan: We will recheck an ALT, AST and Depakote level for the morning. We'll continue to monitor for any medication side effects monitor his ongoing response to treatment. Look at scheduling a a support meeting. He does talk about looking at discharge planning soon.
[2019-04-16] MEDS: DIVALPROEX ER 500 MG TAB.ER.24H PO SCH (20:17)
[2019-04-16] MEDS: ACETAMINOPHEN TAB 325 MG TAB PO PRN (21:43)
[2019-04-17] MEDS: PANTOPRAZOLE 40 MG TABLET PO SCH (07:50)
[2019-04-17 08:26] LABS: Valproic Acid (Depakene) 32.8 ug/mL
[2019-04-17] MEDS: LOSARTAN 50 MG TAB PO SCH (09:46)
[2019-04-17] MEDS: DIVALPROEX ER 250 MG TAB.ER.24H PO SCH (09:46)
[2019-04-17] MEDS: METOPROLOL TARTRATE 25 MG TAB PO SCH ×2 (09:46→21:11)
[2019-04-17] MEDS: VENLAFAXINE HCL ER 37.5 MG CAP PO SCH (09:46)
[2019-04-17] MEDS: ACETAMINOPHEN TAB 325 MG TAB PO PRN (13:53)
--- NOTE | 2019-04-17 16:22 | P.PN ---
Subjective Patient was seen and chart was reviewed. Case discussed with staff. The patient reports history of CHI and has been going through agitation and anger issues. He reports improved mood and agitation with the changes in medications. Patient states that [He] was going to groups and trying to participate as best as [he] could. Patient claims that [his] anxiety has been improving [He] admits to fair energy and fair appetite. He reports improved sleep. At this time patient denies any suicidal or homical ideations, intent or plan. Patient denies any auditory, visual hallucinations and denies any paranoia or delusions. Patient denies any side effects from the medications and has been compliant with meds. Depakote level was low. Objective - Vital Signs Vital signs: Vital Signs Temp 98.1 F 04/17/19 06:36 Pulse 66 04/17/19 06:36 Resp 16 04/17/19 06:36 BP 140/90 04/17/19 06:36 Pulse Ox 96 04/15/19 09:08 Intake & Output 04/16/19 04/17/19 04/17/19 18:59 06:59 18:59 Weight 101.7 kg - Exam Mental Status Exam: General Appearance: Patient appears to be stated age is alert, directable. fair hygiene and grooming. Patient has improving eye contact. Behavior: Patient is seated without any agitated behavior. Appears to be less anxious Speech: Patient's speech is fluent and nonpressured. soft tone. Mood/Affect: Patient reports their mood/anxiety is mildly improving, affect is congruent Suicidality/Homicidality: Patient denies having any suicidal or homicidal ideation intent or plan. Perceptions: Patient denies any auditory or visual hallucinations. Though content/process: There is no evidence of any delusional thought content and thought process is linear and goal-directed. Memory and concentration: AOX3, grossly intact for the purposes of this session. 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 Patient has signed adult voluntary form and medication consent and was placed in patient's chart. -Medications: Increase Depakote ER to 500 mg by mouth twice a day. -NRT -not needed as patient does not smoke -SW on board for discharge planning.
[2019-04-17] MEDS: DIVALPROEX ER 500 MG TAB.ER.24H PO SCH (21:11)
[2019-04-18] MEDS: PANTOPRAZOLE 40 MG TABLET PO SCH (08:24)
[2019-04-18] MEDS: METOPROLOL TARTRATE 25 MG TAB PO SCH ×2 (08:25→20:23)
[2019-04-18] MEDS: VENLAFAXINE HCL ER 37.5 MG CAP PO SCH (08:25)
[2019-04-18] MEDS: LOSARTAN 50 MG TAB PO SCH (08:25)
[2019-04-18] MEDS ORDERED: DIVALPROEX ER 500 MG TAB.ER.24H PO SCH (09:00)
--- NOTE | 2019-04-18 11:10 | P.PN ---
Subjective Patient was seen and chart was reviewed. Case discussed with staff. The patient reports feeling better. The patient reports improved mood and functioning. He reports improved sleep and appetite. The patient was disappointed for not getting discharged today but was able to accept it. The patient reports good sleep and appetite. He denies any crying spells or panic attacks. He still reports cognitive issues from his closed head injury. The patient denies any auditory or visual hallucinations he denies any active suicidal homicidal or par anoid ideations at this time. Depakote level was low. Objective - Vital Signs Vital signs: Vital Signs Temp 98.5 F 04/18/19 06:51 Pulse 82 04/18/19 08:25 Resp 16 04/18/19 06:51 BP 146/85 04/18/19 08:25 Pulse Ox 96 04/15/19 09:08 - Exam Mental Status Exam: General Appearance: Patient appears to be stated age is alert, directable. fair hygiene and grooming. Patient has improving eye contact. Behavior: Patient is seated without any agitated behavior. Appears to be less anxious Speech: Patient's speech is fluent and nonpressured. soft tone. Mood/Affect: Patient reports their mood/anxiety is mildly improving, affect is congruent Suicidality/Homicidality: Patient denies having any suicidal or homicidal ideation intent or plan. Perceptions: Patient denies any auditory or visual hallucinations. Though content/process: There is no evidence of any delusional thought content and thought process is linear and goal-directed. Memory and concentration: AOX3, grossly intact for the purposes of this session. 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 Patient has signed adult voluntary form and medication consent and was placed in patient's chart. -Medications: Increase Depakote ER to 500 mg by mouth tid. -NRT -not needed as patient does not smoke -SW on board for discharge planning.
--- NOTE | 2019-04-18 11:39 | P.PN ---
Progress Note - Text Discharge Note: Patient was seen and chart was reviewed. Case discussed with staff. The patient reports doing better and denies any new problems at this time. Patient states that He was going to groups and trying to participate as best as [he] could. Patient any depression or anxiety. [He ]states that [he] is feeling more supported on the unit at this time. [He] admits to fair energy and fair appetite. He claims that he slept good last night and does not remember having a nightmare. At this time patient denies any suicidal or homical ideations, intent or plan. Patient denies any auditory, visual hallucinations and denies any paranoia or delusions. Patient denies any side effects from the medications and has been compliant with meds. Mental Status Exam: General Appearance: Patient appears to be stated age is alert, directable. fair hygiene and grooming. Patient has improving eye contact. Behavior: Patient is seated without any agitated behavior. Speech: Patient's speech is fluent and nonpressured. soft tone. Mood/Affect: Patient reports their mood/anxiety is mildly improving, affect is congruent Suicidality/Homicidality: Patient denies having any suicidal or homicidal ideation intent or plan. Perceptions: Patient denies any auditory or visual hallucinations. Though content/process: There is no evidence of any delusional thought content and thought process is linear and goal-directed. Memory and concentration: AOX3, grossly intact for the purposes of this session. Judgment and insight: Fair Assessment Major depressive disorder, without psychotic features Plan: -One-to-one supportive psychotherapy was provided Discussed discharge plans. Motor discharge home with family today with plans to follow-up as an outpatient.
[2019-04-18] MEDS: DIVALPROEX ER 500 MG TAB.ER.24H PO SCH ×2 (15:13→20:23)
[2019-04-19] MEDS: METOPROLOL TARTRATE 25 MG TAB PO SCH ×2 (08:32→20:23)
[2019-04-19] MEDS: LOSARTAN 50 MG TAB PO SCH (08:32)
[2019-04-19] MEDS: PANTOPRAZOLE 40 MG TABLET PO SCH (08:33)
[2019-04-19] MEDS: DIVALPROEX ER 500 MG TAB.ER.24H PO SCH ×3 (08:33→21:14)
[2019-04-19] MEDS: VENLAFAXINE HCL ER 37.5 MG CAP PO SCH (08:35)
--- NOTE | 2019-04-19 09:54 | P.CONS ---
History of Present Illness - History of Present Illness This is a pleasant 53 years old male with past medical history of hypertension, GERD, sleep apnea on CPAP, kidney stone, TBI with behavioral disturbance and osteoarthritis including chronic low back pain and right hip pain. Patient was admitted for signs symptoms of behavioral disturbance related to his traumatic brain injury in the past and depressive disorder secondary to the same. Patient has been managed by psychiatric team, medical consult has been requested for me dical management. Patient denies any specific symptoms. He denies headache or weakness or abnormal sensation. No blurred vision. He denies chest pain or dyspnea. No change in urine or bowel habits. No fever. Patient has chronic low back pain and chronic right hip pain that needs arthroplasty as he is telling me, he is waiting until his insurance/Medicare Starts kicking in as patient states and. He will go to see his PCP and orthopedic. he denies smoking, alcohol or illicit tracts to me. Review of Systems CONSTITUTIONAL: No fever, no malaise, no fatigue. HEENT: No recent visual problems or hearing problems. Denied any sore throat. CARDIOVASCULAR: No orthopnea, PND, no palpitations, no syncope. PULMONARY: No shortness of breath, no cough, no hemoptysis. GASTROINTESTINAL: No diarrhea, no nausea, no vomiting, no abdominal pain. Normoactive bowel sounds. NEUROLOGICAL: No headaches, no weakness, no numbness. HEMATOLOGICAL: Denies any bleeding or petechiae. GENITOURINARY: Denies any burning micturition, frequency, or urgency. MUSCULOSKELETAL/RHEUMATOLOGICAL: Denies any joint pain, swelling, or any muscle pain. ENDOCRINE: Denies any polyuria or polydipsia. Past Medical History Past Medical History: GERD/Reflux, Hypertension, Sleep Apnea/CPAP/BIPAP Additional Past Medical History / Comment(s): no cpap used, hx kidney stones, brain injury History of Any Multi-Drug Resistant Organisms: None Reported Past Surgical History: Orthopedic Surgery Additional Past Surgical History / Comment(s): left knee surgery, ruptured left bicep tendon, rt hand surgery, facial surgery-broken jaw, lasik eye surgery Past Anesthesia/Blood Transfusion Reactions: Motion Sickness Past Psychological History: Depression Smoking Status: Former smoker Past Alcohol Use History: Rare Additional Past Alcohol Use History / Comment(s): quit smoking 26 yrs ago, smoked for 4 yrs Past Drug Use History: Marijuana - Past Family History Mother Family Medical History: No Reported History Medications and Allergies Home Medications Medication Instructions Recorded Confirmed Type Losartan Potassium 100 mg PO DAILY 06/18/16 04/13/19 History Metoprolol Tartrate [Lopressor] 25 mg PO BID 12/15/17 04/13/19 History Divalproex ER [Depakote ER] 250 mg PO QAM 04/13/19 04/13/19 History Divalproex ER [Depakote ER] 500 mg PO HS 04/13/19 04/13/19 History Esomeprazole Magnesium 40 mg PO DAILY 04/13/19 04/13/19 History Allergies Allergy/AdvReac Type Severity Reaction Status Date / Time No Known Allergies Allergy Verified 04/15/19 09:09 Physical Exam Vitals: Vital Signs Temp Pulse Resp BP 04/19/19 08:36 98.6 F 75 16 135/83 04/18/19 20:25 77 144/72 GENERAL: The patient is alert and oriented x3, not in any acute distress. Well developed, well nourished. HEENT: Pupils are round and equally reacting to light. EOMI. No scleral icterus. No conjunctival pallor. Normocephalic, atraumatic. No pharyngeal erythema. No thyromegaly. CARDIOVASCULAR: S1 and S2 present. No murmurs, rubs, or gallops. PULMONARY: Chest is clear to auscultation, no wheezing or crackles. ABDOMEN: Soft, nontender, nondistended, normoactive bowel sounds. No palpable organomegaly. MUSCULOSKELETAL: No joint swelling or deformity. EXTREMITIES: No cyanosis, clubbing, or pedal edema. NEUROLOGICAL: Gross neurological examination did not reveal any focal deficits. SKIN: No rashes. No petechiae Results CBC & Chem 7: 04/14/19 10:40 04/16/19 09:09 Assessment and Plan Assessment: behavioral disturbance related to his traumatic brain injury in the past and depressive disorder secondary to the same. essential hypertension Primary osteoarthritis with chronic back pain and chronic right hip pain, follow-up as an outpatient as patient wishes History of sleep apnea not on CPAP GERD History of kidney stones Plan: This is a pleasant 53 race old male who presents for behavioral disturbance and depressive symptoms related to his history of traumatic brain injury, management of his mental health illnesses is by the psychiatric team. Continue with antihypertensive, continue with Protonix Labs and medication were reviewed.. Continue same treatment. Continue with symptomatic treatment. Resume home medication. Monitor lytes and vitals. DVT and GI prophylaxis. Further recommendations of the clinical course of the patient DVT prophylaxis : he is low risk, no need for anticoagulation. Patient is mobile GI Prophylaxis: Protonix Prognosis is guarded Patient was instructed to follow up with his PCP in one week and he agrees Thank you for consulting us. We will see the patient on as needed basis
--- NOTE | 2019-04-19 14:18 | P.PN ---
Subjective Progress Note Date: 04/19/19 Patient was seen and chart was reviewed. Case discussed with staff. The patient reports feeling more at ease and relaxed. The patient reports good mood and functioning. He reports good sleep and appetite. The patient attends and participates in milieu therapy. He denies any crying spells or panic attacks. He still reports cognitive issues from his closed head injury. The patient denies any auditory or visual hallucinations he denies any active suicidal homicidal or paranoid ideations at this time. The patient has been tolerating the increase in Depakote without any problems. He denies any side effects from the medications. Depakote level was low. Objective - Vital Signs Vital signs: Vital Signs Temp 98.6 F 04/19/19 08:36 Pulse 75 04/19/19 08:36 Resp 16 04/19/19 08:36 BP 135/83 04/19/19 08:36 Pulse Ox 96 04/15/19 09:08 - Exam Mental Status Exam: General Appearance: Patient appears to be stated age is alert, directable. fair hygiene and grooming. Patient has improving eye contact. Behavior: Patient is seated without any agitated behavior. Appears to be less anxious Speech: Patient's speech is fluent and nonpressured. soft tone. Mood/Affect: Patient reports their mood/anxiety is mildly improving, affect is congruent Suicidality/Homicidality: Patient denies having any suicidal or homicidal ideation intent or plan. Perceptions: Patient denies any auditory or visual hallucinations. Though content/process: There is no evidence of any delusional thought content and thought process is linear and goal-directed. Memory and concentration: AOX3, grossly intact for the purposes of this session. 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 Patient has signed adult voluntary form and medication consent and was placed in patient's chart. -Medications: Continue Depakote ER to 500 mg by mouth tid. Will repeat Dep level in am. Will check LFTS. -NRT -not needed as patient does not smoke -SW on board for discharge planning.
[2019-04-19 15:32] LABS: Albumin 4.1 g/dL (3.5-5.0); Bilirubin, Delta 0.3 mg/dL (0.0-0.2); Bilirubin,Unconjugated 0.5 mg/dL (0.0-1.1); Total Bilirubin 0.8 mg/dL (0.2-1.3)
[2019-04-20 05:26] VITALS: BP 139/70; PULSE 102; TEMP 98.3
[2019-04-20] MEDS: PANTOPRAZOLE 40 MG TABLET PO SCH (09:00)
[2019-04-20] MEDS: LOSARTAN 50 MG TAB PO SCH (09:00)
[2019-04-20] MEDS: METOPROLOL TARTRATE 25 MG TAB PO SCH (09:00)
[2019-04-20] MEDS: DIVALPROEX ER 500 MG TAB.ER.24H PO SCH (09:00)
[2019-04-20] MEDS: VENLAFAXINE HCL ER 37.5 MG CAP PO SCH (09:01)
[2019-04-20] MEDS: ACETAMINOPHEN TAB 325 MG TAB PO PRN (09:28)
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
== END 2019-04-20 14:53 | disposition home or self-care (01) | DRG 881 ==
LOC: EC 09:45 → 3MHU 14:37
PROVIDERS: ADMIT Psychiatry & Neurology Psychiatry; ATTEND Psychiatry & Neurology Psychiatry
DX: F32.9 Major depressive disorder, single episode, unspecified (principal); R45.851 Suicidal ideations; S06.890S Other specified intracranial injury without loss of consciousness, sequela; F06.30 Mood disorder due to known physiological condition, unspecified; F91.9 Conduct disorder, unspecified; G43.909 Migraine, unspecified, not intractable, without status migrainosus; G89.29 Other chronic pain; I10 Essential (primary) hypertension; J44.9 Chronic obstructive pulmonary disease, unspecified; K21.9 Gastro-esophageal reflux disease without esophagitis; M19.91 Primary osteoarthritis, unspecified site; Z87.820 Personal history of traumatic brain injury; Z79.899 Other long term (current) drug therapy; Z87.442 Personal history of urinary calculi; Z87.891 Personal history of nicotine dependence; Z91.81 History of falling
CPT/HCPCS: 80048; 80053; 80061; 80076; 80164; 80306; 81001; 82075; 82248; 83036; 84443; 84450; 84460; 85025; 99285

== ENCOUNTER → 2020-07-02 | Outpatient (CLI) | payer MEDICARE ==
[2020-07-02 15:32] LABS: Albumin 4.8 g/dL (3.80-4.90); Albumin/Globulin Ratio 1.85 (1.60-3.17); Basophils # (A) 0.05 X 10*3/uL (0.00-0.10); Basophils % (A) 0.8 %; Bilirubin, Conjugated 0.2 mg/dL (0.20-0.40); Bilirubin,Unconjugated 0.5 mg/dL; Eosinophils # (A) 0.15 X 10*3/uL (0.04-0.35); Eosinophils % (A) 2.3 %; Globulin 2.6 g/dL (1.6-3.3); HCT 49.8 % (39.6-50.0); Lymphocytes # (A) 2.17 X 10*3/uL (0.90-5.00); Lymphocytes % (A) 32.7 %; MCH 30.7 pg (27.0-32.0); MCHC 34.1 g/dL (32.0-37.0); MCV 89.9 fL (80.0-97.0); Monocytes # (A) 0.65 X 10*3/uL (0.20-1.00); Monocytes % (A) 9.8 %; Neutrophils # (A) 3.58 X 10*3/uL (1.80-7.70); Neutrophils % (A) 53.9 %; Platelet Count 230 X 10*3/uL (140-440); RBC 5.54 X 10*6/uL (4.40-5.60); RDW 11.9 % (11.5-14.5); Total Bilirubin 0.7 mg/dL (0.2-1.2); Total Protein 7.4 g/dL (6.2-8.2); WBC 6.63 X 10*3/uL (4.50-10.00)
[2020-07-02 15:35] LABS: Valproic Acid (Depakene) 41.2 ug/mL (50.0-100.0)
== END | disposition home or self-care (01) ==
LOC: LABWHC1 07:42
DX: Z79.899 Other long term (current) drug therapy (principal)
CPT/HCPCS: 36415; 80076; 80164; 84443; 85025

== ENCOUNTER → 2023-08-09 | Outpatient (CLI) | payer MEDICARE ==
--- NOTE | 2023-08-09 09:59 | US ---
EXAMINATION TYPE: US liver DATE OF EXAM: 08/09/2023 COMPARISON: 03/19/2015. CLINICAL INDICATION: Male, 58 years old with history of R74.8 ABNORMAL LEVELS OF OTHER SERUM ENZYMES; LFTs TECHNIQUE: Multiple sonographic images of the right upper quadrant are obtained. FINDINGS: EXAM MEASUREMENTS: Liver Length: 16.6 cm Gallbladder Wall: 0.2 cm CBD: 0.4 cm Right Kidney: 10.7x5.6x6.9 cm APPLIQUE CUTTER NOTES: Pancreas: Tail obscured by overlying bowel gas Liver: increased size, echogenicity and attenuation. Several small cysts, largest measures 1.1x0.7x0 .9cm Gallbladder: wnl Evidence for sonographic Velásquez's sign: No CBD: wnl Right Kidney: No hydronephrosis or masses seen exam limited by bowel and body habitus IMPRESSION: 1. No evidence for acute process. 2. Hepatic steatosis. 3. Simple appearing hepatic cysts.
== END | disposition home or self-care (01) ==
LOC: RADUSWWP 09:23
PROVIDERS: ATTEND Internal Medicine
DX: R74.8 Abnormal levels of other serum enzymes (principal); K76.0 Fatty (change of) liver, not elsewhere classified; K76.89 Other specified diseases of liver
CPT/HCPCS: 76705

== ENCOUNTER → 2023-10-05 | Outpatient (CLI) | payer MEDICARE ==
[2023-10-05 09:35] LABS: Prothrombin Time 10.7 sec (10.0-12.5)
[2023-10-05 15:01] LABS: HCT 49.8 % (39.6-50.0); HGB 17.4 g/dL (13.0-17.0); MCH 30.3 pg (27.0-32.0); MCHC 34.9 g/dL (32.0-37.0); MCV 86.8 FL (80.0-97.0); Mean Platelet Volume 10.2 FL (9.5-12.2); NRBC Per 100 WBC 0 X 10*3/uL (0.00-0.01); Platelet Count 202 X 10*3/uL (140-440); RBC 5.74 X 10*6/uL (4.40-5.60); RDW 12.2 % (11.5-14.5); WBC 6.19 X 10*3/uL (4.50-10.00)
[2023-10-05 15:05] LABS: Blood Urea Nitrogen 15.8 mg/dL (9.0-27.0); Carbon Dioxide 22.1 mmol/L (21.6-31.8); Chloride 108 mmol/L (96-109); Glucose 114 mg/dL (70-110); Sodium 143 mmol/L (135-145)
[2023-10-05 15:06] LABS: ALT 96 U/L (10-49); AST 48 U/L (14-35); Albumin 4.6 g/dL (3.8-4.9); Albumin/Globulin Ratio 1.84 Ratio (1.60-3.17); Alkaline Phosphatase 66 U/L (41-126); Calcium 9.6 mg/dL (8.7-10.3); Globulin 2.5 g/dL (1.6-3.3); Total Bilirubin 0.5 mg/dL (0.3-1.2); Total Protein 7.1 g/dL (6.2-8.2)
== END | disposition home or self-care (01) ==
LOC: LABWHC1 08:07
PROVIDERS: ATTEND Internal Medicine
DX: Z01.812 Encounter for preprocedural laboratory examination (principal)
CPT/HCPCS: 36415; 80053; 83036; 85027; 85610; 85730; 87070

== ENCOUNTER 2024-06-21 15:06 | Inpatient (IN) | payer MEDICARE ==
--- NOTE | 2024-06-21 15:58 | ED ---
General Adult HPI - General Chief complaint: Arrhythmia/Palpitations Stated complaint: stiff neck, dizziness Time Seen by Provider: 06/21/24 15:08 Source: patient, EMS Mode of arrival: ambulatory Limitations: no limitations - History of Present Illness Initial comments: Dictation was produced using [employer] dictation software. please excuse any grammatical, word or spelling errors. Chief Complaint: 59-year-old male with SVT History of Present Illness: Patient 59-year-old male with history of SVT presents to the emergency department after SVT episode. Patient states he was driving on his way to the gym when he started to feel dizzy. He drove home. EMS was called he was found to be in SVT was given adenosine with successful chemical cardioversion. Patient states he feels at baseline currently. Patient [place] any recent changes in his medications or his habits in the last 24 to 48 hours. States that he takes metoprolol for his SVT. The ROS documented in this emergency department record has been reviewed and confirmed by me. Those systems with pertinent positive or negative responses have been documented in the HPI. All other systems are other negative and/or noncontributory. - Related Data Home Medications Medication Instructions Recorded Confirmed Metoprolol Tartrate [Lopressor] 25 mg PO BID 12/15/17 04/13/19 Esomeprazole Magnesium 40 mg PO DAILY 04/13/19 04/13/19 Previous Rx's Medication Instructions Recorded Divalproex ER [Depakote ER] 500 mg PO TID 28 Days tab.er.24h 04/20/19 Losartan [Cozaar] 100 mg PO DAILY 28 Days tab 04/20/19 Venlafaxine HCl ER [Effexor XR] 37.5 mg PO DAILY 28 Days 04/20/19 cap.er.24h Allergies Allergy/AdvReac Type Severity Reaction Status Date / Time No Known Allergies Allergy Verified 04/15/19 09:09 Review of Systems ROS Statement: Those systems with pertinent positive or pertinent negative responses have been documented in the HPI. ROS Other: All systems not noted in ROS Statement are negative. Past Medical History Past Medical History: GERD/Reflux, Hypertension, Sleep Apnea/CPAP/BIPAP Additional Past Medical History / Comment(s): no cpap used, hx kidney stones, brain injury History of Any Multi-Drug Resistant Organisms: None Reported Past Surgical History: Joint Replacement, Orthopedic Surgery Additional Past Surgical History / Comment(s): left knee surgery, ruptured left bicep tendon, rt hand surgery, facial surgery-broken jaw, lasik eye surgery, hip replacement Past Anesthesia/Blood Transfusion Reactions: Motion Sickness Past Psychological History: Depression Smoking Status: Former smoker Past Alcohol Use History: Rare Past Drug Use History: None Reported - Past Family History Mother Family Medical History: No Reported History General Exam - General Exam Comments Initial Comments: PHYSICAL EXAM: General Impression: Alert and oriented x3, not in acute distress HEENT: Normocephalic atraumatic, extra-ocular movements intact, pupils equal and reactive to light bilaterally, mucous membranes moist. Cardiovascular: Heart regular rate and rhythm Chest: Able to complete full sentences, no retractions, no tachypnea Abdomen: abdomen soft, non-tender, non-distended, no organomegaly Musculoskeletal: Pulses present and equal in all extremities, no peripheral edema Motor: no focal deficits noted Neurological: CN II-XII grossly intact, no focal motor or sensory deficits noted Skin: Intact with no visualized rashes Psych: Normal affect and mood Limitations: no limitations Course Vital Signs 06/21/24 06/21/24 06/21/24 15:08 15:21 16:29 Temperature 98.7 F Pulse Rate 78 77 Pulse Rate [ 78 Bilateral Carbonizer Tester ] Respiratory 18 18 Rate Blood Pressure 111/77 119/67 O2 Sat by Pulse 97 98 Oximetry EKG Findings - EKG Comments: EKG Findings:: My EKG interpretation: Ventricular rate 87, sinus rhythm,. 164, QRS 90, QTc 417. No AR prolongation, no QTC prolongation, no ST or T-wave changes noted. Overall, this EKG is unremarkable Medical Decision Making - Medical Decision Making Was pt. sent in by a medical professional or institution (, PA, MANAGER OF OPERATIONS, urgent care, hospital, or [facility]...) When possible be specific @ -No Did you speak to anyone other than the patient for history (EMS, parent, family, police, friend...)? What history was obtained from this source @ -No Did you review nursing and triage notes (agree or disagree)? Why? @ -I reviewed and agree with nursing and triage notes Were old charts reviewed (outside hosp., previous admission, EMS record, old EKG, old radiological studies, urgent care reports/EKG's, [facility] records)? Report findings @ -No old charts were reviewed Differential Diagnosis (chest pain, altered mental status, abdominal pain women, abdominal pain men, vaginal bleeding, musculoskeletal, weakness, fever, dyspnea, syncope, headache, dizziness, GI bleed, back pain, seizure, CVA, palpatations, mental health)? @ - Differential Palpitations: Ventricular arrhythmias, atrial arrhythmias, myocardial infarction, anemia, thyrotoxicosis, electrolyte imbalance, hypokalemia, pulmonary embolism, pulmonary disease, drugs, alcohol, anxiety, stress.... This is not meant to be an all-inclusive list. EKG interpreted by me (3pts min.). @ -See above X-rays interpreted by me (1pt min.). @ -Chest x-ray is nonacute CT interpreted by me (1pt min.). @ -None done U/S interpreted by me (1pt. min.). @ -None done What testing was considered but not performed or refused? (CT, X-rays, U/S, labs)? Why? @ -None What meds were considered but not given or refused? Why? @ -None Was smoking cessation discussed for >3mins.? @ -No Were there social determinants of health that impacted care today? How? (Homelessness, low income, unemployed, alcoholism, drug addiction, transportation, low edu. Level, literacy, decrease access to med. care, shelter, rehab)? @ -No Was there de-escalation of care discussed even if they declined (Discuss DNR or withdrawal of care, Hospice)? DNR status @ -No What co-morbidities impacted this encounter? (DM, HTN, Smoking, COPD, CAD, Cancer, CVA, ARF, Chemo, Hep., AIDS, mental health diagnosis, sleep apnea, morbid obesity)? @ -None Was patient admitted / discharged? Hospital course, mention meds given and route, prescriptions, significant lab abnormalities, going to OR and other pertinent info. @ -59-year-old male presents to the ER after having been in SVT. He was chemically cardioverted with adenosine by EMS. Upon evaluation patient asymptomatic. Vital signs stable. Laboratory evaluation. Patient had elevated troponin of 0.330. Patient denies any ACS symptoms likely secondary to high output. Patient be admitted observation for troponin monitoring and cardiology consultation. Case discussed with hospitalist for admission Did you discuss the management of the patient with other professionals (professionals i.e. , PA, MANAGER OF OPERATIONS, lab, RT, psych nurse, social media specialist, construction framer, teacher, sales and service officer, casey saw operator)? Give summary @ -See above Was critical care preformed (if so, how long)? @ -No Undiagnosed new problem with uncertain prognosis? @ -No Drug Therapy requiring intensive monitoring for toxicity (Heparin, Nitro, Insulin, Cardizem)? @ -No Were any procedures done? @ -No Diagnosis/symptom? Acute, or Chronic, or Acute on Chronic? Uncomplicated (without systemic symptoms) or Complicated (systemic symptoms)? @ -SVT, elevated troponin Side effects of treatment? @ -No Exacerbation, Progression, or Severe Exacerbation? @ -No Poses a threat to life or bodily function? How? (Chest pain, [place], NH, pneumonia, PE, COPD, DKA, ARF, appy, cholecystitis, CVA, Diverticulitis, Homicidal, Suicidal, threat to staff... and all critical care pts) @ -yes - Lab Data Result diagrams: 06/21/24 15:48 06/21/24 15:48 Lab Results 06/21/24 06/21/24 06/21/24 Range/Units 15:48 15:48 15:48 WBC 10.7 H (3.8-10.6) k/uL RBC 5.45 (4.30-5.90) m/uL Hgb 16.0 (13.0-17.5) gm/dL Hct 48.4 (39.0-53.0) % MCV 88.9 (80.0-100.0) fL MCH 29.3 (25.0-35.0) pg MCHC 33.0 (31.0-37.0) g/dL RDW 13.1 (11.5-15.5) % Plt Count 237 (150-450) k/uL MPV 8.3 Neutrophils % 80 % Lymphocytes % 11 % Monocytes % 6 % Eosinophils % 2 % Basophils % 0 % Neutrophils # 8.6 H (1.3-7.7) k/uL Lymphocytes # 1.2 (1.0-4.8) k/uL Monocytes # 0.7 (0-1.0) k/uL Eosinophils # 0.2 (0-0.7) k/uL Basophils # 0.0 (0-0.2) k/uL PT 11.1 (10.0-12.5) sec INR 1.0 (<1.2) APTT 23.5 (22.0-30.0) sec Sodium 138 (137-145) mmol/L Potassium 4.3 (3.5-5.1) mmol/L Chloride 106 (98-107) mmol/L Carbon Dioxide 24 (22-30) mmol/L Anion Gap 8 mmol/L BUN 30 H (9-20) mg/dL Creatinine 1.28 H (0.66-1.25) mg/dL Est GFR (CKD-EPI)AfAm 69 (>60 ml/min/1.73 sqM) Est GFR (CKD-EPI)NonAf 60 (>60 ml/min/1.73 sqM) Glucose 72 L (74-99) mg/dL Calcium 9.5 (8.4-10.2) mg/dL Magnesium 2.2 (1.6-2.3) mg/dL Total Bilirubin 0.9 (0.2-1.3) mg/dL AST 75 H (17-59) U/L ALT 65 H (4-49) U/L Alkaline Phosphatase 49 (38-126) U/L Troponin I (0.000-0.034) ng/mL Total Protein 6.4 (6.3-8.2) g/dL Albumin 4.0 (3.5-5.0) g/dL 06/21/24 Range/Units 15:48 WBC (3.8-10.6) k/uL RBC (4.30-5.90) m/uL Hgb (13.0-17.5) gm/dL Hct (39.0-53.0) % MCV (80.0-100.0) fL MCH (25.0-35.0) pg MCHC (31.0-37.0) g/dL RDW (11.5-15.5) % Plt Count (150-450) k/uL MPV Neutrophils % % Lymphocytes % % Monocytes % % Eosinophils % % Basophils % % Neutrophils # (1.3-7.7) k/uL Lymphocytes # (1.0-4.8) k/uL Monocytes # (0-1.0) k/uL Eosinophils # (0-0.7) k/uL Basophils # (0-0.2) k/uL PT (10.0-12.5) sec INR (<1.2) APTT (22.0-30.0) sec Sodium (137-145) mmol/L Potassium (3.5-5.1) mmol/L Chloride (98-107) mmol/L Carbon Dioxide (22-30) mmol/L Anion Gap mmol/L BUN (9-20) mg/dL Creatinine (0.66-1.25) mg/dL Est GFR (CKD-EPI)AfAm (>60 ml/min/1.73 sqM) Est GFR (CKD-EPI)NonAf (>60 ml/min/1.73 sqM) Glucose (74-99) mg/dL Calcium (8.4-10.2) mg/dL Magnesium (1.6-2.3) mg/dL Total Bilirubin (0.2-1.3) mg/dL AST (17-59) U/L ALT (4-49) U/L Alkaline Phosphatase (38-126) U/L Troponin I 0.330 H* (0.000-0.034) ng/mL Total Protein (6.3-8.2) g/dL Albumin (3.5-5.0) g/dL Disposition Clinical Impression: Elevated troponin Disposition: ADMITTED IP TO THIS [facility] Condition: Fair Referrals: None,Stated [REFERRING] - 1-2 days Decision Time: 16:58
[2024-06-21 16:01] LABS: Partial Thromboplastin Time 23.5 sec (22.0-30.0); Prothrombin Time 11.1 sec (10.0-12.5)
[2024-06-21 16:11] LABS: ALT 65 U/L (4-49); AST 75 U/L (17-59); African American GFR (CKD) 69 (>60 ml/min/1.73 sqM); Alkaline Phosphatase 49 U/L (38-126); Anion Gap 8 mmol/L; Blood Urea Nitrogen 30 mg/dL (9-20); Calcium 9.5 mg/dL (8.4-10.2); Carbon Dioxide 24 mmol/L (22-30); Chloride 106 mmol/L (98-107); Glucose 72 mg/dL (74-99); Magnesium 2.2 mg/dL (1.6-2.3); Non-African American GFR(CKD) 60 (>60 ml/min/1.73 sqM); Potassium 4.3 mmol/L (3.5-5.1); Sodium 138 mmol/L (137-145); Total Bilirubin 0.9 mg/dL (0.2-1.3); Total Protein 6.4 g/dL (6.3-8.2)
[2024-06-21 16:14] LABS: Basophils % (A) 0 %; Eosinophils # (A) 0.2 k/uL (0-0.7); Eosinophils % (A) 2 %; HCT 48.4 % (39.0-53.0); Lymphocytes # (A) 1.2 k/uL (1.0-4.8); Lymphocytes % (A) 11 %; MCH 29.3 pg (25.0-35.0); MCV 88.9 fL (80.0-100.0); Mean Platelet Volume 8.3; Monocytes # (A) 0.7 k/uL (0-1.0); Monocytes % (A) 6 %; Neutrophils # (A) 8.6 k/uL (1.3-7.7); Neutrophils % (A) 80 %; Platelet Count 237 k/uL (150-450); RBC 5.45 m/uL (4.30-5.90); RDW 13.1 % (11.5-15.5); WBC 10.7 k/uL (3.8-10.6)
--- NOTE | 2024-06-21 16:44 | XR ---
EXAMINATION TYPE: XR chest 2V DATE OF EXAM: 06/21/2024 3:56 PM COMPARISON: 02/09/2017 CLINICAL INDICATION: Male, 59 years old with history of dysrhythmia, TECHNIQUE: XR chest 2V view(s) obtained. FINDINGS: The heart size is normal. The pulmonary vasculature is normal. The lungs are clear. IMPRESSION: 1. No acute pulmonary process. [facility], , 06/21/2024 4:42 PM
[2024-06-21] MEDS ORDERED: NITROGLYCERIN SL TABS 0.4 MG TAB SUBLINGUAL PRN (16:53)
[2024-06-21] MEDS: ASPIRIN 81 MG PO STA (17:42)
[2024-06-21] MEDS: METOPROLOL TARTRATE 25 MG TAB PO SCH (21:21)
[2024-06-22] MEDS: HEPARIN SOD,PORK IN 0.45% NACL 25,000 UNIT in 0.45% NACL 1 250ML.BAG IV SCH (00:56)
[2024-06-22] MEDS: HEPARIN SODIUM 1,000 UN/ML (10ML VL) IV ONE (00:59)
[2024-06-22] MEDS ORDERED: ASPIRIN 325 MG TAB PO SCH (09:00)
[2024-06-22] MEDS: LOSARTAN 50 MG TAB PO SCH (09:05)
[2024-06-22] MEDS: ASPIRIN 81 MG PO SCH (09:05)
[2024-06-22] MEDS: HEPARIN SODIUM 1,000 UN/ML (10ML VL) IV PRN (09:08)
[2024-06-22] MEDS ORDERED: NITROGLYCERIN SL TABS 0.4 MG TAB SUBLINGUAL PRN (10:06)
[2024-06-22] MEDS ORDERED: ALPRAZolam 0.25 MG TAB PO PRN (10:06)
[2024-06-22] MEDS ORDERED: ALPRAZolam 0.5 MG TAB PO PRN (10:06)
--- NOTE | 2024-06-22 10:06 | P.CRDCN ---
History of Present Illness Consult date: 06/22/24 Consult reason: chest pain History of present illness: This is a 59-year-old male patient Dr. Bull with past medical history of hypertension, paroxysmal SVT, family history of premature coronary artery disease. We have been asked to evaluate the patient for chest pain. Patient gives history that he was driving yesterday and developed tightness in his throat and it was hard to catch his breath and he also had tightness in his chest. He had visual changes and it was hard to focus like he could not see the traffic lights or the stop sign. He also had dizziness and a cold sweat. Patient was found to be in SVT by EMS and given adenosine with cardioversion. He had another episode of SVT that resolved on its own without treatment while in the emergency center. Patient denies having any chest pain during these episodes.Blood pressure 133/76, heart rate 57, pulse ox 96% on room air. Patient is seen today in the emergency center waiting for a bed on the cardiac stepdown unit. Patient has been started on a heparin drip. Discussed recommendations for cardiac catheterization due to elevated cardiac enzymes and patient is agreeable to move forward with this today. -EKG: All EKGs have been reviewed. Patient has been in a sinus rhythm with nonspecific T wave changes as well as SVT at 167 bpm at 2110 last night and subsequently converted to sinus rhythm. -Chest x-ray: No acute process. -Laboratory studies: WBC 10.7, hemoglobin 16. Electrolytes are normal. BUN 30 creatinine 1.28. Troponin 0.33, 1.24, 2.74 -Home cardiac medications: Losartan 100 mg daily, metoprolol tartrate 50 mg twice daily. -Exercise stress test performed in the office on 09/24/2021 revealed good exercise tolerance. No symptoms typical of angina. Dysrhythmias in the form of SVT and atrial tachycardia and occasional PVCs. Normal electrocardiographic response to exercise with no evidence of stress-induced ischemia. -Echocardiogram performed in the office in 09/01/2021 revealed EF of 55% with moderate left ventricular hypertrophy. Aortic valve is calcified. Mitral valve is calcified. Mild tricuspid regurgitation. PASP 38 mmHg. Review Of Systems: At the time of my exam: CONSTITUTIONAL: Denies fever or chills. HEENT: Denies blurred vision, vision changes, or eye pain. Denies hemoptysis CARDIOVASCULAR: Denies chest pain. Denies orthopnea. Denies PND. Denies palpitations RESPIRATORY: Denies shortness of breath. GASTROINTESTINAL: Denies abdominal pain. Denies nausea or vomiting. HEMATOLOGIC: Denies bleeding disorders. GENITOURINARY: Denies any blood in urine. SKIN: Denies puritis. Denies rash. Physical examination: Gen: This is a 59-year-old male appears to be in no acute distress VS: reviewed HEENT: Head is atraumatic, normocephalic. Pupils equal, round. Sclerae is anicteric. NECK: Supple. No JVD. LUNGS: Clear to auscultation. No wheezes or rhonchi. No intercostal retractions. HEART: Regular rate and rhythm. No murmur. ABDOMEN: Soft No tenderness. EXTREMITIES: No pedal edema. No calf tenderness. NEUROLOGICAL: Patient is awake, alert and oriented x3. Assessment: NSTEMI SVT Hypertension Family history of premature coronary artery disease Plan: Resume patient's home cardiac medications Resume losartan at lower dose of 50 mg daily Continue heparin drip Schedule patient for cardiac catheterization today with Dr. Bull Obtain 2-D echocardiogram and Doppler study to assess cardiac structure and function Further recommendations to follow based upon clinical course Thank you kindly for this consultation. Nurse practitioner note has been reviewed, I agree with documented findings and plan of care. Patient was seen and examined. Past Medical History Past Medical History: GERD/Reflux, Hypertension, Sleep Apnea/CPAP/BIPAP Additional Past Medical History / Comment(s): no cpap used, hx kidney stones, brain injury History of Any Multi-Drug Resistant Organisms: None Reported Past Surgical History: Joint Replacement, Orthopedic Surgery Additional Past Surgical History / Comment(s): left knee surgery, ruptured left bicep tendon, rt hand surgery, facial surgery-broken jaw, lasik eye surgery, hip replacement Past Anesthesia/Blood Transfusion Reactions: Motion Sickness Past Psychological History: Depression Smoking Status: Former smoker Past Alcohol Use History: Rare Past Drug Use History: None Reported - Past Family History Mother Family Medical History: No Reported History Medications and Allergies Home Medications Medication Instructions Recorded Confirmed Type Esomeprazole Magnesium 40 mg PO DAILY 04/13/19 06/21/24 History Losartan Potassium 100 mg PO DAILY 06/21/24 06/21/24 History Metoprolol Tartrate [Lopressor] 50 mg PO BID 06/21/24 06/21/24 History Allergies Allergy/AdvReac Type Severity Reaction Status Date / Time No Known Allergies Allergy Verified 06/21/24 17:15 Physical Exam Vitals: Vital Signs Temp Pulse Pulse Resp BP Pulse Ox 06/22/24 06:46 57 L 18 133/76 96 06/22/24 03:01 57 L 18 117/69 94 L 06/22/24 01:03 69 18 111/68 94 L 06/21/24 20:13 65 16 133/77 95 06/21/24 18:52 98.6 F 65 18 122/74 96 06/21/24 16:29 77 18 119/67 98 06/21/24 15:21 78 06/21/24 15:08 98.7 F 78 18 111/77 97 Intake and Output 06/21/24 06/22/24 06/22/24 22:59 06:59 14:59 Other: Weight 102.058 kg Results 06/21/24 15:48 06/21/24 15:48 Cardiac Enzymes 06/21/24 06/21/24 06/21/24 Range/Units 15:48 15:48 17:54 AST 75 H (17-59) U/L Troponin I 0.330 H* 1.240 H* (0.000-0.034) ng/mL 06/21/24 Range/Units 21:15 AST (17-59) U/L Troponin I 2.740 H* (0.000-0.034) ng/mL Coagulation 06/21/24 06/22/24 Range/Units 15:48 06:20 PT 11.1 (10.0-12.5) sec APTT 23.5 39.7 H (22.0-30.0) sec CBC 06/21/24 Range/Units 15:48 WBC 10.7 H (3.8-10.6) k/uL RBC 5.45 (4.30-5.90) m/uL Hgb 16.0 (13.0-17.5) gm/dL Hct 48.4 (39.0-53.0) % Plt Count 237 (150-450) k/uL Comprehensive Metabolic Panel 06/21/24 Range/Units 15:48 Sodium 138 (137-145) mmol/L Potassium 4.3 (3.5-5.1) mmol/L Chloride 106 (98-107) mmol/L Carbon Dioxide 24 (22-30) mmol/L BUN 30 H (9-20) mg/dL Creatinine 1.28 H (0.66-1.25) mg/dL Glucose 72 L (74-99) mg/dL Calcium 9.5 (8.4-10.2) mg/dL AST 75 H (17-59) U/L ALT 65 H (4-49) U/L Alkaline Phosphatase 49 (38-126) U/L Total Protein 6.4 (6.3-8.2) g/dL Albumin 4.0 (3.5-5.0) g/dL Current Medications Generic Name Dose Route Start Last Admin Trade Name Freq PRN Reason Stop Dose Admin Aspirin 325 mg 06/22/24 09:00 Aspirin 325 Mg Tab PO DAILY KINZA Heparin Sodium (Porcine) 0 unit 06/22/24 00:43 Heparin Sodium 1,000 Un/Ml (10ml Vl) IV PER PROTOCOL PRN Low PTT Protocol Heparin Sodium/Sodium Chloride 250 mls @ 10.002 mls/hr 06/22/24 00:45 06/22/24 00:56 25,000 unit/ Sodium Chloride IV 9.8 units/kg/hr .Q24H KINZA 10.002 mls/hr Administration Protocol 9.8 UNITS/KG/HR Metoprolol Tartrate 25 mg 06/21/24 21:15 06/21/24 21:21 Metoprolol Tartrate 25 Mg Tab PO 25 mg BID KINZA Administration Nitroglycerin 0.4 mg 06/21/24 16:53 Nitroglycerin Sl Tabs 0.4 Mg Tab SUBLINGUAL Q5M PRN Chest Pain Intake and Output 06/21/24 06/22/24 06/22/24 22:59 06:59 14:59 Other: Weight 102.058 kg 06/21/24 15:48 06/21/24 15:48
[2024-06-22 10:54] LABS: Chol/HDL Ratio 4.91 Ratio; LDL Cholesterol,Calculated 91.5 mg/dL (0.0-131.0)
[2024-06-22] MEDS: ASPIRIN 325 MG TAB PO STA (11:13)
[2024-06-22] MEDS: ATORVASTATIN 80 MG TAB PO STA (11:14)
[2024-06-22] MEDS: SODIUM CHLORIDE 0.9% 1,000 ML in EMPTY BAG 1 BAG IV SCH (11:14)
[2024-06-22] MEDS: LIDOCAINE 1% INJ 10MG/ML (20 ML MDV) SQ ONE (11:59)
[2024-06-22] MEDS: IV FLUID CONTINUATION 1,000 ML IV ONE (12:00)
[2024-06-22] MEDS: HEPARIN SODIUM,PORCINE 10,000 UNIT in SODIUM CHLORIDE 0.9% 1,000 ML IRRIGATION PRN (12:00)
[2024-06-22] MEDS: HEPARIN SODIUM,PORCINE (1 ML) 2,500 UNIT in SODIUM CHLORIDE 0.9% 250 ML IRRIGATION PRN (12:00)
[2024-06-22] MEDS: MIDAZOLAM 2 MG/2 ML VIAL IVP ONE (12:01)
[2024-06-22] MEDS: fentaNYL (PF) 50 MCG/ML 2 ML AMP IVP ONE (12:01)
[2024-06-22] MEDS: VERAPAMIL SYRINGE (5 MG/10 ML) INTRAARTER ONE (12:02)
[2024-06-22] MEDS: HEPARIN SODIUM 1,000 UN/ML (10ML VL) IVP ONE (12:02)
[2024-06-22] MEDS: IOPAMIDOL-370 100ML BTL INJ ONE (12:12)
[2024-06-22] MEDS ORDERED: RX INFO: IV CONTRAST WAS GIVEN 1 EACH MISC MISCELLANE PRN (13:07)
--- NOTE | 2024-06-22 13:50 | P.HPIM ---
History of Present Illness H&P Date: 06/22/24 Chief Complaint: Dizziness Patient is a 59 year old male with past medical history of GERD, hypertension, TRESA presented to the ED after SVT episode. Patient stated that yesterday he was driving to the gym when he began to feel dizzy. Associated with that he had shortness of breath and pain in his shoulder. He had vision changes too. At this point he drove back home and EMS was called. EMS found him to be in SVT and they gave her adenosine with successful chemical cardioversion. The patient does mention taking metoprolol for SVT. He mentions of a family history of pr emature coronary artery disease. Additionally, he states his transaminases have been elevated for about 10 years now. He denies any abdominal pain, or denies alcohol intake. Denies fever, chills, shortness of breath, cough, chest pain, palpitations, abdominal pain, nausea, vomiting, hematuria, dysuria, hematochezia, melena, headache, slurred speech, numbness, tingling, lightheadedness, blurred vision, double vision. ED documentation reviewed. In the ED patient was treated with aspirin 25 mg, heparin drip, losartan 50 mg, metoprolol 25 mg. Vitals on admission T 98.7 F, MS 78 bpm, RR 18, BP 111/77, oxygen saturation 97% on 2 L of oxygen via nasal cannula EKG independently interpreted as sinus rhythm rate 87 bpm, QTc 417 ms, with nonspecific T wave changes as well as SVT at 167 bpm at 2111 last night Chest x-ray shows no acute pulmonary process Labs on admission show WBC 10.7, hemoglobin 16, platelet count 237 INR 1.0, APTT 23.5, sodium 138, potassium 4.3, BUN 30, creatinine 1.08, AST 75, ALT 65, total bilirubin 0.9, magnesium 2.0 Troponin I 0.330, 1.040, 2.740 Review of systems: Pertinent positives and negatives as discussed in HPI, a complete review of systems was performed and all other systems are negative. Social history: Tobacco: Former smoker Alcohol: Rarely Recreational drugs: Denies use Travel: No recent travel history Sick contacts: None Physical examination: Vital signs reviewed General: nontoxic, no distress, appears at stated age Derm: warm, dry, intact Head: atraumatic, normocephalic, symmetric Eyes: EOMI, anicteric sclera Mouth: no lip lesion, mucus membranes moist Cardiovascular: S1 S2 reg, no murmur Lungs: CTA bilateral, no rhonchi, no rales, no accessory muscle use Abdominal: soft, non-tender to palpation Extremities: No cyanosis, clubbing, or pedal edema. Neuro: Alert, Oriented, Gross neurological examination did not reveal any focal deficits. Psych: well appearing, appropriate affect Assessment/Plan: Patient is a 59 year old male with past medical history of GERD, hypertension, TRESA presented to the ED after SVT episode. Active: #. NSTEMI #. SVT EKG independently interpreted as sinus rhythm, rate 87 bpm, QTc 417 ms Continue heparin drip Started on aspirin 80 mg p.o. daily, atorvastatin 80 mg p.o. at bedtime, metoprolol decreased to 25 mg p.o. twice daily Obtain lipid panel and echocardiogram Scheduled for cardiac catheterization today Continue telemetry monitoring Cardiology is consulted #. Hypertension Losartan decreased to 50 mg PO daily #. Reactive leukocystosis WBC 10.7 Monitor CBC #. NAVA Creatinine 1.28 Monitor BMP Chronic: #. GERD #. Chronic elevated transaminases Continue pantoprazole 40 mg p.o. daily F: None E: Replete as required N: NPO DVT prophylaxis: Heparin drip GI prophylaxis: Pantoprazole 40 mg p.o. daily The patient is admitted with an anticipated more than 2 midnight stay for evaluation of dizziness and SVT CODE STATUS: Full code Discussed with: Patient Anticipated discharge place: Home Past Medical History Past Medical History: GERD/Reflux, Hypertension, Sleep Apnea/CPAP/BIPAP Additional Past Medical History / Comment(s): no cpap used, hx kidney stones, brain injury History of Any Multi-Drug Resistant Organisms: None Reported Past Surgical History: Joint Replacement, Orthopedic Surgery Additional Past Surgical History / Comment(s): left knee surgery, ruptured left bicep tendon, rt hand surgery, facial surgery-broken jaw, lasik eye surgery, hip replacement Past Anesthesia/Blood Transfusion Reactions: Motion Sickness Past Psychological History: Depression Smoking Status: Former smoker Past Alcohol Use History: Rare Past Drug Use History: None Reported - Past Family History Mother Family Medical History: No Reported History Medications and Allergies Home Medications Medication Instructions Recorded Confirmed Type Esomeprazole Magnesium 40 mg PO DAILY 04/13/19 06/21/24 History Losartan Potassium 100 mg PO DAILY 06/21/24 06/21/24 History Metoprolol Tartrate [Lopressor] 50 mg PO BID 06/21/24 06/21/24 History Allergies Allergy/AdvReac Type Severity Reaction Status Date / Time No Known Allergies Allergy Verified 06/21/24 17:15 Physical Exam Vitals: Vital Signs Temp Pulse Pulse Resp BP Pulse Ox 06/22/24 06:46 57 L 18 133/76 96 06/22/24 03:01 57 L 18 117/69 94 L 06/22/24 01:03 69 18 111/68 94 L 06/21/24 20:13 65 16 133/77 95 06/21/24 18:52 98.6 F 65 18 122/74 96 06/21/24 16:29 77 18 119/67 98 06/21/24 15:21 78 06/21/24 15:08 98.7 F 78 18 111/77 97 Intake and Output 06/21/24 06/22/24 06/22/24 22:59 06:59 14:59 Other: Weight 102.058 kg Results CBC & Chem 7: 06/21/24 15:48 06/21/24 15:48 Labs: Abnormal Lab Results - Last 24 Hours (Table) 06/21/24 06/21/24 06/21/24 Range/Units 15:48 15:48 15:48 WBC 10.7 H (3.8-10.6) k/uL Neutrophils # 8.6 H (1.3-7.7) k/uL APTT (22.0-30.0) sec BUN 30 H (9-20) mg/dL Creatinine 1.28 H (0.66-1.25) mg/dL Glucose 72 L (74-99) mg/dL AST 75 H (17-59) U/L ALT 65 H (4-49) U/L Troponin I 0.330 H* (0.000-0.034) ng/mL 06/21/24 06/21/24 06/22/24 Range/Units 17:54 21:15 06:20 WBC (3.8-10.6) k/uL Neutrophils # (1.3-7.7) k/uL APTT 39.7 H (22.0-30.0) sec BUN (9-20) mg/dL Creatinine (0.66-1.25) mg/dL Glucose (74-99) mg/dL AST (17-59) U/L ALT (4-49) U/L Troponin I 1.240 H* 2.740 H* (0.000-0.034) ng/mL
[2024-06-22] MEDS: SODIUM CHLORIDE 0.9% 1,000 ML IV SCH (17:15)
--- NOTE | 2024-06-22 19:14 | CC ---
CARDIAC CATHETERIZATION REPORT INDICATIONS: Non-ST segment elevation PR. PROCEDURE NOTE: After obtaining informed consent, left heart catheterization and coronary angiogram were performed via the right radial artery using standard Chloe catheters. The patient tolerated the procedure well without any obvious immediate complications. He received moderate conscious sedation. Total sedation time was 20 minutes. Right radial artery access was obtained using Seldinger technique; a 6-Khmer sheath was placed. Catheters and wires were floated into the ascending aorta under fluoroscopic guidance. The patient received verapamil and heparin per protocol. A TR band will be used for hemostasis. FINDINGS: 1. Hemodynamics: a.Left ventricular end-diastolic pressure is 18 mm. There is no significant gradient across the aortic valve. b.Left ventriculogram: Left ventriculogram is not performed. 2. Angiographic Data: a.Right coronary artery: Right coronary artery is a dominant vessel and is free of significant stenosis. b.Left main coronary artery is a normal-sized vessel and is free of disease, divides into left anterior descending coronary artery, ramus intermedius, and a nondominant circumflex coronary artery. LAD and its branches circumflex coronary artery and its branches and the ramus intermedius are free of significant disease. CONCLUSIONS: 1. Normal coronary arteries. 2. Elevated troponin is probably related to supply-demand mismatch related to the paroxysmal SVT. MMODL / IJN: [id number] /
[2024-06-22] MEDS: ATORVASTATIN 80 MG TAB PO SCH (19:32)
[2024-06-23] MEDS: PANTOPRAZOLE 40 MG TABLET PO SCH (06:01)
[2024-06-23 06:44] LABS: HGB 14.8 gm/dL (13.0-17.5); MCH 30.4 pg (25.0-35.0); MCHC 33.6 g/dL (31.0-37.0); MCV 90.5 fL (80.0-100.0); Platelet Count 176 k/uL (150-450); RBC 4.87 m/uL (4.30-5.90); RDW 12.4 % (11.5-15.5); WBC 7.1 k/uL (3.8-10.6)
[2024-06-23 06:58] LABS: African American GFR (CKD) >90 (>60 ml/min/1.73 sqM); Anion Gap 7 mmol/L; Blood Urea Nitrogen 20 mg/dL (9-20); Calcium 8.8 mg/dL (8.4-10.2); Carbon Dioxide 22 mmol/L (22-30); Chloride 108 mmol/L (98-107); Glucose 101 mg/dL (74-99); Non-African American GFR(CKD) >90 (>60 ml/min/1.73 sqM); Potassium 4.2 mmol/L (3.5-5.1); Sodium 137 mmol/L (137-145)
[2024-06-23 10:52] VITALS: BP 154/80; PULSE 58; RESP 16; TEMP 97.5
--- NOTE | 2024-06-23 12:33 | CA ---
Transthoracic Echo Report Name: Rishi Jennings Age: 59 Gender: M : 1965 Exam Date: 06/23/2024 08:28 Exam Location: [place] [facility] Ht (in): 70 Wt (lb): 225 Ordering Physician: Chrissie Morales Attending/Referring Phys: [id number], Carmen Porter Luggage Melody Zaragoza, RADHA Procedure CPT: Indications: nstemi Cardiac Hx: Technical Quality: Fair Contrast 1: Total Dose (mL): Contrast 2: Total Dose (mL): MEASUREMENTS (Male / Female) Normal Values 2D ECHO LV Diastolic Diameter PLAX 4.5 cm 4.2 - 5.9 / 3.9 - 5.3 cm LV Systolic Diameter PLAX 2.9 cm IVS Diastolic Thickness 1.5 cm 0.6 - 1.0 / 0.6 - 0.9 cm LVPW Diastolic Thickness 1.3 cm 0.6 - 1.0 / 0.6 - 0.9 cm LV Relative Wall Thickness 0.6 RV Internal Dim ED PLAX 2.9 cm LA Systolic Diameter LX 4.5 cm 3.0 - 4.0 / 2.7 - 3.8 cm LV Diastolic Volume MOD BP 67.2 cm??? 67 - 155 / 56 - 104 cm??? LV Systolic Volume MOD BP 29.4 cm??? 22 - 58 / 19 - 49 cm??? LV Ejection Fraction MOD BP 56.2 % >= 55 % LV Cardiac Index MOD BP 1178.6 cm???/min???m??? LV Diastolic Volume MOD 4C 80.7 cm??? LV Systolic Volume MOD 4C 34.5 cm??? LV Ejection Fraction MOD 4C 57.3 % LV Cardiac Index MOD 4C 1443.6 cm???/min???m??? LV Diastolic Length 4C 7.7 cm LV Systolic Length 4C 6.8 cm LV Diastolic Volume MOD 2C 54.6 cm??? LV Systolic Volume MOD 2C 22.8 cm??? LV Ejection Fraction MOD 2C 58.2 % LV Cardiac Index MOD 2C 991.2 cm???/min???m??? LV Diastolic Length 2C 7.5 cm LV Systolic Length 2C 6.1 cm LA Volume 66.0 cm??? 18 - 58 / 22 - 52 cm??? LA Volume Index 29.0 cm???/m??? 16 - 28 cm???/m??? M-MODE Aortic Root Diameter MM 3.6 cm LA Systolic Diameter MM 4.3 cm LA Ao Ratio MM 1.2 AV Cusp Separation MM 2.2 cm DOPPLER MV Area PHT 3.3 cm??? Mitral E Point Velocity 89.6 cm/s Mitral A Point Velocity 81.0 cm/s Mitral E to A Ratio 1.1 MV Deceleration Time 229.6 ms TR Peak Velocity 179.6 cm/s TR Peak Gradient 12.9 mmHg FINDINGS Left Ventricle Left ventricular ejection fraction is estimated at 55-60 %. Moderately increased septal wall thickness.Normal left ventricular systolic function with no obvious regional wall motion abnormalities. Right Ventricle Normal right ventricular size and function. Right ventricular systolic pressure within normal limits. Right Atrium Normal right atrial size. Left Atrium Mildly increased left atrial diameter. Mildly increased left atrial volume. Mitral Valve Structurally normal mitral valve. Mild mitral regurgitation. No mitral stenosis. Aortic Valve Trileaflet aortic valve. No aortic stenosis. No aortic regurgitation. Tricuspid Valve Structurally normal tricuspid valve. Mild tricuspid regurgitation. No tricuspid stenosis. Pulmonic Valve Structurally normal pulmonic valve. Trace pulmonic regurgitation. No pulmonic stenosis. Pericardium No pericardial or pleural effusion. Aorta Aorta at upper limits of normal. CONCLUSIONS LVEF 55 to 60% No obvious regional wall motion abnormality Normal RV size and systolic function Mild left atrial dilatation Mild MR Mild TR Previewed by: Dr Johnathan Otto (Electronically Signed) Final Date: 23 June 2024 12:33
--- NOTE | 2024-06-23 12:39 | CDI ---
Documentation Clarification Form Date: 06/23/2024 12:19:00 PM From: Ana Beaulieu Phone: [phone] Admit Date: 06/21/2024 04:54:00 PM Patient Name: Rishi Jennings Visit Number: [id number] Discharge Date: ATTENTION: The Clinical Documentation Specialists (CDI) and [facility] Coding Staff appreciate your assistance in clarifying documentation. Please respond to the clarification below the line at the bottom and electronically sign. The CDI & [facility] Coding staff will review the response and follow-up if needed. Please note: Queries are made part of the Legal Health Record. If you have any questions, please contact the author of this message via ITS. Doctor: Martin Bull Your patient has troponin level(s) of: 0.330, 1.240, 2.740, 06/21. Please clarify if there is an additional diagnosis and/or clinical significance related to this value. Patient history/risk factors: 59 year old male presents to the ED after a SVT episode that happened while he was driving, the patient felt dizzy, shortness of breath and pain in his shoulder with vision changes. The patient drove home and called EMS. EMS found patient to be in SVT and gave adenosine with successful chemical cardioversion. Medical History: SVT, Smoker, HTN, GERD and Sleep Apnea. 06/22, HP. Clinical indicators: 06/21 21:11 EKG: Supraventricular Tachycardia Indeterminate [place] [facility] [place] and Moderate T-wave Abnormality Consider Lateral Ischemia mV T wave IN II 06/22 Cardiology consult: NSTEMI 06/22 Cardiac Catheterization and coronary angiogram: Elevated troponin is probably related to supply-demand mismatch related to paroxysmal SVT. Treatment: 06/22 Cardiac Catheterization. 06/21 Aspirin po x 1, 06/21 Lopressor po bid; 06/22 06/22 Heparin IV; 06/22 Aspirin daily, Cozaar po daily, 06/22 Lipitor po x 1; 06/22 06/23 0.9ns IV Fluids, Is there an additional diagnosis and/or clinical significance related to the above lab result/information: [ ] NSTEMI type 1 [x ] Type 2 OR due to Supply Demand Mismatch Related to Paroxysmal SVT [ ] Other, please specify [ ] Unable to determine Reference: [employer] Fourth [place] Definition of Myocardial Infarction Elevated Cardiac Troponin >99th percentile with Troponin rise and/or fall * With Acute ischemia * Acute Myocardial Infarction * Atherosclerosis thrombosis * Type I OR * Oxygen supply and demand imbalance * Type II OR (Please indicate etiology) * Without acute ischemia * Acute Myocardial Injury (Template Last Reviewed: October 2022) MTDD
--- NOTE | 2024-06-23 13:42 | P.DS ---
Providers Date of admission: 06/21/24 16:54 Expected date of discharge: 06/23/24 Attending physician: Timothy Sales Consults: 06/21/24 16:53 Consult Physician Urgent Consulting Provider: Jose Miles Consult Reason/Comments: chest pain Do you want consulting provider notified?: Yes Primary care physician: Jerri Garcia Hospital Course: Discharge diagnosis: SVT Elevated troponin probably related to supply/demand mismatch related to paroxysmal SVT S/p Left heart catheterization 06/22/24 Hypertension Reactive leukocystosis, resolved NAVA, resolved GERD Chronic elevated transaminases Hospital Course: Patient is a 59 year old male with past medical history of GERD, hypertension, TRESA presented to the ED after SVT episode. Patient stated that yesterday he was driving to the gym when he began to feel dizzy. Associated with that he had shortness of breath and pain in his shoulder. He had vision changes too. At this point he drove back home and EMS was called. EMS found him to be in SVT and they gave her adenosine with successful chemical cardioversion. The patient does mention taking metoprolol for SVT. He mentions of a family history of premature coronary artery disease. Additionally, he states his transaminases have been elevated for about 10 years now. He denies any abdominal pain, or denies alcohol intake. Denies fever, chills, shortness of breath, cough, chest pain, palpitations, abdominal pain, nausea, vomiting, hematuria, dysuria, hematochezia, melena, headache, slurred speech, numbness, tingling, lightheadedness, blurred vision, double vision. ED documentation reviewed. In the ED patient was treated with aspirin 25 mg, heparin drip, losartan 50 mg, metoprolol 25 mg. Vitals on admission T 98.7 F, WA 78 bpm, RR 18, BP 111/77, oxygen saturation 97% on 2 L of oxygen via nasal cannula. EKG independently interpreted as sinus rhythm rate 87 bpm, QTc 417 ms, with nonspecific T wave changes as well as SVT at 167 bpm at 2111 last night. Chest x-ray shows no acute pulmonary process. Labs on admission show WBC 10.7, hemoglobin 16, platelet count 237 INR 1.0, APTT 23.5, sodium 138, potassium 4.3, BUN 30, creatinine 1.08, AST 75, ALT 65, total bilirubin 0.9, magnesium 2.0. Troponin I 0.330, 1.040, 2.740 06/23/24: Patient seen and examined at bedside today. BP today is 156/80. Labs today show WBC 7.1, hemoglobin 14.8, sodium 137, potassium 4.0, creatinine 0.8. Lipid panel showed triglycerides 112, cholesterol 143, LDL 91.5, VLDL 22.5, HDL 29.1. Patient underwent left heart catheterization yesterday that showed normal coronary arteries. Patient seen at bedside today and is feeling good and excited about discharge. Patient will be discharged today and is given a script for Aspirin 81 mg, Atorvastatin 80 mg, Losartan 50 mg, Metoprolol 25 mg. Patient is advised to be compliant with medications. 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 Vital signs are reviewed and stable General: nontoxic, no distress, appears at stated age Derm: warm, dry, intact Head: atraumatic, normocephalic, symmetric Eyes: EOMI, anicteric sclera Mouth: no lip lesion, mucus membranes moist Cardiovascular: S1 S2 reg, no murmur Lungs: CTA bilateral, no rhonchi, no rales, no accessory muscle use Abdominal: soft, non-tender to palpation Extremities: No cyanosis, clubbing, or pedal edema. Neuro: Alert, Oriented, Gross neurological examination did not reveal any focal deficits. Psych: well appearing, appropriate affect A total of 30 minutes of time were spent preparing this complex discharge summary. Patient was discharged on 06/23/24 at 1400. Patient Condition at Discharge: Stable Plan - Discharge Summary Discharge Rx Participant: No New Discharge Prescriptions: New Aspirin 81 mg PO DAILY 14 Days #14 tab Losartan [Cozaar] 50 mg PO DAILY 14 Days #14 tab Atorvastatin [Lipitor] 80 mg PO HS 14 Days #14 tab Metoprolol Tartrate [Lopressor] 25 mg PO BID 14 Days #28 tab Continue Esomeprazole Magnesium 40 mg PO DAILY Discontinued Metoprolol Tartrate [Lopressor] 50 mg PO BID Losartan Potassium 100 mg PO DAILY Discharge Medication List Esomeprazole Magnesium 40 mg PO DAILY 04/13/19 [History] Aspirin 81 mg PO DAILY 14 Days #14 tab 06/23/24 [Rx] Atorvastatin [Lipitor] 80 mg PO HS 14 Days #14 tab 06/23/24 [Rx] Losartan [Cozaar] 50 mg PO DAILY 14 Days #14 tab 06/23/24 [Rx] Metoprolol Tartrate [Lopressor] 25 mg PO BID 14 Days #28 tab 06/23/24 [Rx] Follow up Appointment(s)/Referral(s): None,Stated [REFERRING] - 1-2 days Martin Bull MD [STAFF PHYSICIAN] - 07/03/24 4:00 pm
--- NOTE | 2024-06-24 14:03 | P.PN ---
Subjective Progress Note Date: 06/23/24 Consult reason: chest pain History of present illness: This is a 59-year-old male patient Dr. Bull with past medical history of hypertension, paroxysmal SVT, family history of premature coronary artery disease. We have been asked to evaluate the patient for chest pain. Patient gives history that he was driving yesterday and developed tightness in his throat and it was hard to catch his breath and he also had tightness in his chest. He had visual changes and it was hard to focus like he could not see the traffic lights or the stop sign. He also had dizziness and a cold sweat. Patient was found to be in SVT by EMS and given adenosine with cardioversion. He had another episode of SVT that resolved on its own without treatment while in the emergency center. Patient denies having any chest pain during these episodes.Blood pressure 133/76, heart rate 57, pulse ox 96% on room air. Patient is seen today in the emergency center waiting for a bed on the cardiac stepdown unit. Patient has been started on a heparin drip. Discussed recommen dations for cardiac catheterization due to elevated cardiac enzymes and patient is agreeable to move forward with this today. -EKG: All EKGs have been reviewed. Patient has been in a sinus rhythm with nonspecific T wave changes as well as SVT at 167 bpm at 2110 last night and subsequently converted to sinus rhythm. -Chest x-ray: No acute process. -Laboratory studies: WBC 10.7, hemoglobin 16. Electrolytes are normal. BUN 30 creatinine 1.28. Troponin 0.33, 1.24, 2.74 -Home cardiac medications: Losartan 100 mg daily, metoprolol tartrate 50 mg twice daily. -Exercise stress test performed in the office on 09/24/2021 revealed good exercise tolerance. No symptoms typical of angina. Dysrhythmias in the form of SVT and atrial tachycardia and occasional PVCs. Normal electrocardiographic response to exercise with no evidence of stress-induced ischemia. -Echocardiogram performed in the office in 09/01/2021 revealed EF of 55% with moderate left ventricular hypertrophy. Aortic valve is calcified. Mitral valve is calcified. Mild tricuspid regurgitation. PASP 38 mmHg. 06/23 Patient seen and examined on the cardiac stepdown unit. Yesterday, he underwent cardiac catheterization which found normal coronary arteries. Elevated troponins thought to be related to the SVT. Patient continues to deny chest pain or chest pressure. No shortness of breath. Telemetry has been a sinus rhythm. Blood pressure 154/80, heart rate 58, pulse ox 98% on room air. Repeat blood work reveals potassium 4.2, BUN 20 creatinine 0.8. Physical examination: Gen: This is a 59-year-old male appears to be in no acute distress VS: reviewed HEENT: Head is atraumatic, normocephalic. Pupils equal, round. Sclerae is anicteric. NECK: Supple. No JVD. LUNGS: Clear to auscultation. No wheezes or rhonchi. No intercostal retractions. HEART: Regular rate and rhythm. No murmur. ABDOMEN: Soft No tenderness. EXTREMITIES: No pedal edema. No calf tenderness. NEUROLOGICAL: Patient is awake, alert and oriented x3. Assessment: NSTEMI SVT Hypertension Family history of premature coronary artery disease Plan: Continue patient's home cardiac medications Continue losartan at lower dose of 50 mg daily Patient is cleared for discharge from cardiology and may follow-up in the office with Dr. Bull in 2 weeks. Nurse practitioner note has been reviewed, I agree with documented findings and plan of care. Patient was seen and examined. Objective - Vital Signs Vital signs: Vital Signs Temp 97.5 F L 06/23/24 07:50 Pulse 58 L 06/23/24 07:50 Resp 16 06/23/24 07:50 BP 154/80 06/23/24 07:50 Pulse Ox 98 06/23/24 07:50 FiO2 Intake & Output 06/22/24 06/23/24 06/23/24 18:59 06:59 18:59 Intake Total 1258.017 118 Balance 1258.017 118 Weight 102.058 kg 103.2 kg Intake: IV 475 Intake, IV Titration 83.017 Amount Heparin Sod,Pork in 0.45% 83.017 NaCl 25,000 unit In 0.45 % NaCl 1 250ml.bag @ 9.8 UNITS/KG/HR 10.002 mls/hr IV .Q24H KINZA Rx#: [id number] Oral 700 118 Other: Voiding Method Toilet Toilet # Voids 1 2 1 - Labs CBC & Chem 7: 06/23/24 06:08 06/23/24 06:08 Labs: Abnormal Lab Results - Last 24 Hours (Table) 06/23/24 Range/Units 06:08 Chloride 108 H (98-107) mmol/L Glucose 101 H (74-99) mg/dL
== END 2024-06-23 16:03 | disposition home or self-care (01) | DRG 281 ==
LOC: EC 15:06 → 3SCARD 16:53 → OBSVTOIN 16:54 → 3SCARD 19:49 → UNDODISIN 06-23 14:39
PROVIDERS: ADMIT Hospitalist; ATTEND Hospitalist
PROC: B2111ZZ Fluoroscopy of Multiple Coronary Arteries using Low Osmolar Contrast (ICD-10-PCS; principal; 2024-06-22 18:15)
PROC: 4A023N7 Measurement of Cardiac Sampling and Pressure, Left Heart, Percutaneous Approach (ICD-10-PCS; principal; 2024-06-22 18:15)
DX: I21.4 Non-ST elevation (NSTEMI) myocardial infarction (principal); I47.19 Other supraventricular tachycardia; I10 Essential (primary) hypertension; F32.A Depression, unspecified; N17.9 Acute kidney failure, unspecified; I21.A1 Myocardial infarction type 2; K21.9 Gastro-esophageal reflux disease without esophagitis; Z82.49 Family history of ischemic heart disease and other diseases of the circulatory system; G47.33 Obstructive sleep apnea (adult) (pediatric); Z79.899 Other long term (current) drug therapy; I49.3 Ventricular premature depolarization; Z87.891 Personal history of nicotine dependence
CPT/HCPCS: 36415; 71046; 80048; 80053; 80061; 83735; 84484; 85025; 85027; 85610; 85730; 93005; 93306; 93458; 96365; 96366; 96368; 99285